=== PATIENT | female | born 1950 | race Caucasian/White ===

== ENCOUNTER 2019-06-18 11:29 | Day surgery (SDC) | payer OTHER ==
[~2019-06-18] VITALS: Ht 152.4 cm; Wt 122.6 kg
[~2019-06-18 11:29] MED LIST: ACET325; ALLO300 PO; AMLO5; ASPI81CH PO; ASPI81EC; ASPI81EC PO; ATOR20 PO; BLOOD PRESSURE MED; CEPH500 PO; Cinnamon500 MG; FISH1000; FURO40 PO; HYDACE5; HYDCHL25; INSULANI SC; INSULISPEN SC; K-Dur 20 meq T20 MEQ PO; LOSA25 PO; MAGOXI400 PO; METF500; METO100 PO; METO50 PO; Multiple Vitam1 EAC1; Novolog Fl100 UNIT/1 SC; OLME40 PO; OMEP20ER; OMEP20ER PO; PRAV20 PO; RANO500T PO; RXCODACET PO; Red Yeast Rice600 MG; SIMV80 PO; SPIR25 PO; TORSE20 PO
[2019-06-18] MEDS ORDERED: WARF5 (11:45)
[2019-06-18] MEDS ORDERED: ENOX120I (11:45)
--- NOTE | 2019-06-18 12:45 | NUR ---
06/18/19 1245 Denise Argueta PT AMBULATED TO RESTROOM
== END 2019-06-18 14:20 | disposition home or self-care (01) ==
LOC: ORSCSDS 11:29
PROVIDERS: Internal Medicine Gastroenterology
PROC: 0DBM8ZX Excision of Descending Colon, Via Natural or Artificial Opening Endoscopic, Diagnostic (ICD-10-PCS; principal; 2019-06-18 13:00)
PROC: 0DBK8ZX Excision of Ascending Colon, Via Natural or Artificial Opening Endoscopic, Diagnostic (ICD-10-PCS; principal; 2019-06-18 13:00)
PROC: 0DBP8ZX Excision of Rectum, Via Natural or Artificial Opening Endoscopic, Diagnostic (ICD-10-PCS; principal; 2019-06-18 13:00)
PROC: 0DBL8ZX Excision of Transverse Colon, Via Natural or Artificial Opening Endoscopic, Diagnostic (ICD-10-PCS; principal; 2019-06-18 13:00)
DX: Z12.11 Encounter for screening for malignant neoplasm of colon (principal); Z86.010 Personal history of colon polyps; D12.2 Benign neoplasm of ascending colon; D12.3 Benign neoplasm of transverse colon; D12.4 Benign neoplasm of descending colon; K62.1 Rectal polyp; K57.30 Diverticulosis of large intestine without perforation or abscess without bleeding; Z83.71 Family history of colonic polyps; E66.01 Morbid (severe) obesity due to excess calories; G47.33 Obstructive sleep apnea (adult) (pediatric); I10 Essential (primary) hypertension; I25.10 Atherosclerotic heart disease of native coronary artery without angina pectoris; J44.9 Chronic obstructive pulmonary disease, unspecified; Z87.891 Personal history of nicotine dependence; K21.9 Gastro-esophageal reflux disease without esophagitis; E11.9 Type 2 diabetes mellitus without complications; E78.5 Hyperlipidemia, unspecified; Z79.899 Other long term (current) drug therapy; Z79.4 Long term (current) use of insulin; Z79.01 Long term (current) use of anticoagulants
CPT/HCPCS: 82947; 88305; J2704; J7120

== ENCOUNTER → 2019-07-02 | Outpatient (CLI) | payer OTHER ==
[~2019-07-02] MED LIST changes: +ENOX120I; +WARF5
== END | disposition home or self-care (01) ==
LOC: LAB SHORT 15:52 → LAB EV 15:52
DX: S81.802A Unspecified open wound, left lower leg, initial encounter (principal)
CPT/HCPCS: 87070; 87075; 87077; 87186; 87205; 87206

== ENCOUNTER 2020-05-26 09:43 | Emergency (ER) | payer OTHER ==
[~2020-05-26] VITALS: Ht 152.4 cm; Wt 122.5 kg
[2020-05-26] MEDS ORDERED: Bumetanide2 MG PO (10:08)
[2020-05-26] MEDS ORDERED: DILT180 PO (10:10)
[2020-05-26 10:29] LABS: BASOPHILS ABSOLUTE AUTO 0.08 K/mm3 (0.00-0.23); BASOPHILS PERCENT AUTO 1 % (0-2); EOSINOPHILS ABSOLUTE AUTO 0.24 K/mm3 (0.00-0.68); EOSINOPHILS PERCENT AUTO 2 % (0-6); Hematocrit 45.9 % (33.0-51.0); Hemoglobin 15.4 g/dL (11.5-16.0); IMMATURE GRAN ABSOLUTE AUTO 0.08 K/mm3 (0.00-0.10); IMMATURE GRAN PERCENT AUTO 1 % (0-1); LYMPHOCYTES ABSOLUTE AUTO 1.59 K/mm3 (0.84-5.20); LYMPHOCYTES PERCENT AUTO 13 % (21-46); MONOCYTES ABSOLUTE AUTO 0.81 K/mm3 (0.16-1.47); MONOCYTES PERCENT AUTO 7 % (4-13); Mean Corpuscular HGB 30.1 pg (26.0-34.0); Mean Corpuscular HGB Conc 33.6 g/dL (31.5-36.5); Mean Corpuscular Volume 90 fL (80-100); Mean Platelet Volume 12.4 fL (9.1-12.4); NEUTROPHILS ABSOLUTE AUTO 9.21 K/mm3 (1.96-9.15); NEUTROPHILS PERCENT AUTO 77 % (41-73); Platelet Count 167 K/mm3 (150-400); RDW Coefficient Variation 15.1 % (11.7-14.2); RDW Standard Deviation 49.1 fL (35.1-46.3); Red Blood Cell Count 5.12 M/mm3 (3.80-5.20); White Blood Cell Count 12.01 K/mm3 (4.00-11.30)
[2020-05-26 10:40] LABS: Alanine Aminotransfer (ALT/SGP 22 U/L (12-78); Albumin, Blood 3.7 g/dL (3.4-5.0); Albumin/Globulin Ratio 0.9 (0.8-1.8); Alk Phos 108 U/L (50-136); Anion Gap 9 mmol/L (6-16); Aspartate Aminotrans (AST/SGOT 22 U/L (12-37); Bilirubin, Total 0.9 mg/dL (0.1-1.0); Blood Urea Nitrogen 35 mg/dL (8-24); Bun/Creatinine Ratio 21.2 (12.0-20.0); CO2, Blood 26 mmol/L (21-32); CPK Creatine Kinase 71 U/L (26-193); Calcium, Blood 8.9 mg/dL (8.5-10.1); Chloride, Blood 99 mmol/L (98-108); Creatine Kinase MB 1.3 ng/mL (0.0-3.6); Creatine Kinase MB Index 1.8 (0.0-4.0); Creatinine, Blood 1.65 mg/dL (0.40-1.00); Globulin, Blood 4.1 g/dL (2.2-4.0); Glomerular Filtration Rate 32 (60-); Glucose, Blood 343 mg/dL (70-99); Potassium, Blood 4.1 mmol/L (3.5-5.5); Sodium, Blood 134 mmol/L (136-145); Total Protein, Blood 7.8 g/dL (6.4-8.2); Troponin I <0.015 ng/mL (0.000-0.040)
== END 2020-05-26 12:59 | disposition home or self-care (01) ==
LOC: ER 09:43
PROVIDERS: Emergency Medicine
DX: I48.91 Unspecified atrial fibrillation (principal); E11.9 Type 2 diabetes mellitus without complications; I10 Essential (primary) hypertension; I25.810 Atherosclerosis of coronary artery bypass graft(s) without angina pectoris; K21.9 Gastro-esophageal reflux disease without esophagitis; Z79.899 Other long term (current) drug therapy; Z79.4 Long term (current) use of insulin; Z79.01 Long term (current) use of anticoagulants; Z95.1 Presence of aortocoronary bypass graft; Z87.891 Personal history of nicotine dependence
CPT/HCPCS: 36415; 71046; 80053; 82550; 82553; 83690; 84484; 85025; 93005; 93010; 96374; 99285-25

== ENCOUNTER 2021-11-25 14:58 | Inpatient (IN) | payer OTHER ==
[~2021-11-25] VITALS: Ht 154.9 cm; Wt 113.4 kg
[~2021-11-25 14:58] MED LIST changes: +Bumetanide2 MG PO; +DILTIAZEM PO; -METO100 PO; -WARF5; +WARF5 PO
[2021-11-25 16:03] LABS: BASOPHILS ABSOLUTE AUTO 0.05 K/mm3 (0.00-0.23); BASOPHILS PERCENT AUTO 1 % (0-2); EOSINOPHILS ABSOLUTE AUTO 0.15 K/mm3 (0.00-0.68); EOSINOPHILS PERCENT AUTO 2 % (0-6); Hematocrit 44.2 % (33.0-51.0); Hemoglobin 14.8 g/dL (11.5-16.0); IMMATURE GRAN ABSOLUTE AUTO 0.03 K/mm3 (0.00-0.10); IMMATURE GRAN PERCENT AUTO 0 % (0-1); LYMPHOCYTES ABSOLUTE AUTO 1.38 K/mm3 (0.84-5.20); LYMPHOCYTES PERCENT AUTO 15 % (21-46); MONOCYTES ABSOLUTE AUTO 0.57 K/mm3 (0.16-1.47); MONOCYTES PERCENT AUTO 6 % (4-13); Mean Corpuscular HGB 29.7 pg (26.0-34.0); Mean Corpuscular HGB Conc 33.5 g/dL (31.5-36.5); Mean Corpuscular Volume 89 fL (80-100); Mean Platelet Volume 11.5 fL (9.1-12.4); NEUTROPHILS ABSOLUTE AUTO 7.22 K/mm3 (1.96-9.15); NEUTROPHILS PERCENT AUTO 77 % (41-73); Platelet Count 183 K/mm3 (150-400); RDW Standard Deviation 51.5 fL (35.1-46.3); Red Blood Cell Count 4.98 M/mm3 (3.80-5.20)
[2021-11-25 16:21] LABS: Albumin, Blood 3.1 g/dL (3.4-5.0); Albumin/Globulin Ratio 0.8 (0.8-1.8); Bilirubin, Total 0.7 mg/dL (0.1-1.0); Bun/Creatinine Ratio 18.9 (12.0-20.0); Creatinine, Blood 1.64 mg/dL (0.40-1.00); Globulin, Blood 4.1 g/dL (2.2-4.0); Potassium, Blood 4.8 mmol/L (3.5-5.5); Total Protein, Blood 7.2 g/dL (6.4-8.2)
[2021-11-25 17:00] LABS: Source, Urine Clean Catch
[2021-11-25 17:23] LABS: Appearance, Urine Hazy (Clear); Bilirubin, Urine Neg (Neg); Blood, Urine 2+ (Neg); Color, Urine Yellow (P-Yellow); Glucose Qualitative, Urine 3+ (Neg); Ketones, Urine Neg (Neg); Leukocyte Esterase, Urine 3+ (Neg); Nitrite, Urine Neg (Neg); Protein, Urine 3+ (Neg); Specific Gravity, Urine 1.015 (1.003-1.022); Urobilinogen, Urine NORM (Normal)
[2021-11-25 18:18] LABS: Bacteria Many /hpf; Squamous Epithelial Cells Mod /hpf (Few)
[2021-11-25 21:18] LABS: Anti-Xa UFH, PHA Monitoring <0.10 IU/mL; International Normalized Ratio 1.64; Prothrombin Time Results 16.7 Sec (9.7-11.5)
--- NOTE | 2021-11-26 04:59 | NUR ---
SHIFT SUMMARY PT TRANSFERRED FROM ED FOR UTI AND REPORTED CHEST PAIN LASTING 8 HOURS. PT IS ALERT AND ORIENTED X4. SYSTOLIC BLOOD PRESSURE RANGING FROM 100'S - 120'S WITH AFIB. PT IS ON ROOM AIR WITH O2 SATURATION >95%. HEPARIN IS INFUSING. CARDIAC CONSULT FOR AM. TROPONINS SHOW A TREND UPWARDS. PT DENIES CHEST PAIN OR PRESSURE. PT IS A SBA AND USES BEDSIDE COMMODE. PT IS ANXIOUS TO GO HOME AND VS ARE STABLE. WILL CONTIUE TO MONITOR. BED IN LOWEST POSITION AND CALL LIGHT WITHIN REACH.
[2021-11-26 05:21] LABS: BASOPHILS ABSOLUTE AUTO 0.06 K/mm3 (0.00-0.23); BASOPHILS PERCENT AUTO 1 % (0-2); EOSINOPHILS ABSOLUTE AUTO 0.24 K/mm3 (0.00-0.68); EOSINOPHILS PERCENT AUTO 3 % (0-6); Hematocrit 41.4 % (33.0-51.0); Hemoglobin 13.8 g/dL (11.5-16.0); IMMATURE GRAN ABSOLUTE AUTO 0.03 K/mm3 (0.00-0.10); IMMATURE GRAN PERCENT AUTO 0 % (0-1); LYMPHOCYTES ABSOLUTE AUTO 2.78 K/mm3 (0.84-5.20); LYMPHOCYTES PERCENT AUTO 30 % (21-46); MONOCYTES ABSOLUTE AUTO 0.67 K/mm3 (0.16-1.47); MONOCYTES PERCENT AUTO 7 % (4-13); Mean Corpuscular HGB 29.9 pg (26.0-34.0); Mean Corpuscular HGB Conc 33.3 g/dL (31.5-36.5); Mean Corpuscular Volume 90 fL (80-100); Mean Platelet Volume 11.7 fL (9.1-12.4); NEUTROPHILS ABSOLUTE AUTO 5.59 K/mm3 (1.96-9.15); NEUTROPHILS PERCENT AUTO 60 % (41-73); Platelet Count 142 K/mm3 (150-400); RDW Coefficient Variation 15.9 % (11.7-14.2); RDW Standard Deviation 52.2 fL (35.1-46.3); Red Blood Cell Count 4.62 M/mm3 (3.80-5.20); White Blood Cell Count 9.37 K/mm3 (4.00-11.30)
[2021-11-26 05:51] LABS: Alanine Aminotransfer (ALT/SGP 29 U/L (12-78); Albumin, Blood 2.9 g/dL (3.4-5.0); Albumin/Globulin Ratio 0.9 (0.8-1.8); Alk Phos 76 U/L (50-136); Anion Gap 5 mmol/L (6-16); Aspartate Aminotrans (AST/SGOT 42 U/L (12-37); Bilirubin, Total 0.6 mg/dL (0.1-1.0); Blood Urea Nitrogen 25 mg/dL (8-24); Bun/Creatinine Ratio 17.4 (12.0-20.0); CHOL/HDL RATIO 3.8; CO2, Blood 28 mmol/L (21-32); Calcium, Blood 8.2 mg/dL (8.5-10.1); Chloride, Blood 107 mmol/L (98-108); Cholesterol 157 mg/dL (50-200); Creatinine, Blood 1.44 mg/dL (0.40-1.00); Globulin, Blood 3.4 g/dL (2.2-4.0); Glomerular Filtration Rate 36 (60-); Glucose, Blood 206 mg/dL (70-99); HDL Cholesterol 41 mg/dL (>39); LDL/HDL RATIO 1.8; Low Density Lipoprotein Chol 75 mg/dL (0-110); Sodium, Blood 140 mmol/L (136-145); Total Protein, Blood 6.3 g/dL (6.4-8.2); Triglycerides 206 mg/dL (30-160); Very Low Density Lipoprot Chol 41 mg/dL (6-32)
--- NOTE | 2021-11-26 10:20 | NUR ---
CARE ASSUMPTION THIS RN ASSUMED CARE FROM SANTOSH RN., AND STUDENT AT 0700. PATIENT IS ALERT AND ORIENTED X4. PERRLA. NEURO IS INTACT. PATIENT BECOMES ANXIOUS ABOUT PLAN OF CARE AND ASKS FREQUENT QUESTIONS. THIS PROVIDED THERAPEUTIC COMMUNICATION AND ACTIVE LISTENING AND EDUCATION TO THE PATIENT AND FAMILY MEMBERS. PATIENT REPORTS NO CHEST PAIN/PRESSURE, SHORTNESS OF BREATH, OR PAIN. TELE AFIB 70S. IRREGULAR PULSE THAT IS FAINT AT RADIAL AND PEDIS PULSES BILATERALLY. LUNG SOUNDS CLEAR. ABD NONTENDER, HYPOACTIVE BOWELS, AND SOFT. SKIN IS FRAIGLE WITH SCATTERED BRUSING THROUGHOUT. PATIENT IS STAND BY ASSIST. PATIENT HAD A SHOWER THIS AM. THE PLAN IS FOR THE PATIENT TO HAVE AN ANGIO LATER TODAY. FAMILY IS AT BEDSIDE AND CALL LIGHT WITHIN REACH. WILL CONTINUE TO MONITOR AND PROVIDE CARE.
--- NOTE | 2021-11-26 12:38 | NUR ---
UPDATE PATIENT LEFT FOR HER ANGIO AT APPROX 1210. FAMILY WENT WITH AND IS IN THE DIRECT RESPONSE CONSULTANT WAITING ROOM. PATIENT NEURO IS INTACT. VSS. TELE AFIB 90S. PATIENT HAS NO CHANGES SINCE LAST NOTE. WILL AWAIT FOR PATIENT TO ARRIVE POST ANGIO.
--- NOTE | 2021-11-26 16:37 | NUR ---
UPDATE-BACK FROM TRACK LAYING SUPERVISOR PATIENT ARRIVED BACK FROM TRACK LAYING SUPERVISOR AT 1400. PATIENT HAS A LEFT RADIAL SITE S/P ANGIO, SITE IS NONTENDER, NO BLEEDING REDDNESS OR HEMATOMA. TR BAND IN PLACE WITH 16CC, WILL REMOVE AIR AT 1645. PATIENT VITAL SIGNS REMAIN STABLE. PATIENT HAS URGNECY AND FREQUENCY FOR URINATION AND HAS BEEN CALLING FREQUENTLY SINCE RETURNING. WILL CONTINUE TO MONITOR AND PROVIDE CARE. BED ALARRM ON AND CALL LIGHT WITHIN REACH
--- NOTE | 2021-11-26 17:38 | NUR ---
SHIFT SUMMARY PATIENT NEURO REMAINS INTACT. NO ACUTE CHANGES. PATIENT TR BAND HAS BEGUN THE DELFATION PROCESS. WILL CONTINUE TO DEFLATE AND ASSESS SITE. PATIENT HAS FREQUENCY AND URGENCY FOR URINATION. NEEDS REMINDERS TO USE CALL LIGHT AND NOT USE THE LEFT ARM. PATIENT STATES SHE FEELS CONFUSED AFTER THE ANGIO. THIS RN PROVIDED THERPUETIC COMMUNICATION AND ACTIVE LISTENING AND SUPPORT TO THE PATIENT. LEFT RADIAL SITE HAS NO BLEEDING, HEMATOMA, OR REDDNESS. CALL LIGHT WITHIN REACH AND BED IN LOWEST POSITION WITH BED ALARM ON. PATIENT SITTING IN BED CURRENTLY EATING DINNER. WILL CONTINUE TO MONITOR AND PROVIDE CARE UNTIL HAND OFF WITH NEXT SHIFT.
--- NOTE | 2021-11-26 22:12 | NUR ---
TONIGHT PATIENT IS VERY CONFUSED. EXTREMELY MORE CONFUSED THAN PREVIOUS NIGHT. VERY RESTLESS, CANT GET COMFORTABLE. VERY DIFFERENT IN COMPARISON TO YESTERDAY. PT CONFUSED AND NOT SURE WHAT SHE NEEDS, BUT WANTS TO SLEEP, AND KEEPS GETTING OUT OF THE BED. WILL CALL MD FOR EITHER ANTIANXIETY MEDS OR A PAVEL RESTRAINT
[2021-11-27 04:15] LABS: BASOPHILS ABSOLUTE AUTO 0.03 K/mm3 (0.00-0.23); BASOPHILS PERCENT AUTO 0 % (0-2); EOSINOPHILS ABSOLUTE AUTO 0.16 K/mm3 (0.00-0.68); EOSINOPHILS PERCENT AUTO 2 % (0-6); Hematocrit 42.2 % (33.0-51.0); Hemoglobin 13.9 g/dL (11.5-16.0); IMMATURE GRAN ABSOLUTE AUTO 0.03 K/mm3 (0.00-0.10); IMMATURE GRAN PERCENT AUTO 0 % (0-1); LYMPHOCYTES ABSOLUTE AUTO 1.61 K/mm3 (0.84-5.20); LYMPHOCYTES PERCENT AUTO 18 % (21-46); MONOCYTES ABSOLUTE AUTO 0.62 K/mm3 (0.16-1.47); MONOCYTES PERCENT AUTO 7 % (4-13); Mean Corpuscular HGB 29.3 pg (26.0-34.0); Mean Corpuscular HGB Conc 32.9 g/dL (31.5-36.5); Mean Corpuscular Volume 89 fL (80-100); Mean Platelet Volume 11.8 fL (9.1-12.4); NEUTROPHILS PERCENT AUTO 72 % (41-73); Platelet Count 146 K/mm3 (150-400); RDW Coefficient Variation 15.8 % (11.7-14.2); RDW Standard Deviation 51.5 fL (35.1-46.3); Red Blood Cell Count 4.75 M/mm3 (3.80-5.20); White Blood Cell Count 8.85 K/mm3 (4.00-11.30)
[2021-11-27 04:40] LABS: Albumin, Blood 3.2 g/dL (3.4-5.0); Albumin/Globulin Ratio 0.9 (0.8-1.8); Bilirubin, Total 0.6 mg/dL (0.1-1.0); Bun/Creatinine Ratio 14.5 (12.0-20.0); Calcium, Blood 8.4 mg/dL (8.5-10.1); Creatinine, Blood 1.45 mg/dL (0.40-1.00); Globulin, Blood 3.7 g/dL (2.2-4.0); Total Protein, Blood 6.9 g/dL (6.4-8.2)
--- NOTE | 2021-11-27 05:40 | NUR ---
SHIFT SUMMARY PT RESTED SOME THROUGH NIGHT. SEEMED TO BE MUCH MORE CONFUSED AND RESTLESS TODAY. GETTING UP FREQUENTLY WITHOUT ASKING FOR HELP, PULLING OUT LINES AND UNSTEADY ON FEET. HAD TO PLACE PAVEL RESTRAINT ON PT. HEP GTT RUNNING. PLANNING TO DO ECHO IN AM. VOIDING VERY FREQUENTLY. NO BM. NO CHEST PAIN. VSS. CALL LIGHT WITHIN REACH, BED IN LOWEST POSITION. AMOS CONTINUE TO MONITOR.
--- NOTE | 2021-11-27 09:54 | NUR ---
CARE ASSUMPTION THIS RN ASSUMED CARE FROM SANTOSH RN AT 0700. PATIENT IS ALERT AND ORIENTED X4. PERRLA. PATIENT LUNG SOUNDS CLEAR. SKIN-LEFT RADIAL SITE IS NONTENDER, NOT BLEEDING, AND HAS SOME BRUISING AT THE SITE. NO CHEST PAIN OR PRESSURE, STRONG RADIAL AND WEEK PEDIS PULSES. NO SHORTNESS OF BREATH. VSS. NO PAIN. PATIENT ABD IS NONTENDER AND ACTIVE. PATIENT HAS USED THE BATHROOM AND IS A STAND BY ASSIST. PATIENT COUSIN IS AT BED SIDE. PATIENT EDUCATED ON LEFT RADIAL SITE CARE AND VERABLIZED UNDERSTANDING SO DID FAMILY AT BEDSIDE. PATIENT SET UP FOR ORAL CARE AND BRUSHED HER HAIR. AM CARE DONE. PATIENT WILL BE DISCHARGED TODAY AND THE DISCHARGE ORDER WAS PLACED. CALL LIGHT WITHIN REACH AND BED ALARM ON AND IN LOWEST POSITION. WILL CONTINUE TO MONITOR AND PROVIDE CARE UNTIL DISCHARGE EDUCATION IS READY FOR THIS RN TO GO OVER WITH THE PATIENT.
[2021-11-27] MEDS ORDERED: CLOP75 PO (10:11)
[2021-11-27] MEDS ORDERED: CEFP200 PO (10:11)
[2021-11-27] MEDS ORDERED: ATOR40TA PO (10:11)
[2021-11-27] MEDS ORDERED: ASPI81CH PO (10:11)
[2021-11-27] MEDS ORDERED: PROBIOTIC1 EA13 PO (10:12)
[2021-11-27] MEDS ORDERED: PHENAZOPYRIDINE95 MG PO (10:12)
--- NOTE | 2021-11-27 12:54 | NUR ---
DISCHARGE THIS RN PROVIDED DISCHARGE EDUCATION TO THE PATIENT AND FAMILY MEMBER. THIS RN WENT OVER FOLLOW UP APPOINTMENT WITH PRIMARY CARE PROVIDER, AND THAT THE [facility] WILL CALL THEM TO SCHEDULE A FOLLOW-UP APPOINTMENT. PATIENT AND FAMILY MEMBER VERBALIZED UNDERSTANDING. THIS RN WENT OVER NEW MEDICATIONS THAT THE PATIENT IS PRESCRIBED AND THE IMPROTANCE OF MEDICATION COMPLIANCE AND FINISHING THE ANTIBIOTICS EVEN IF FEELING BETTER. PATIENT AND FAMILY MEMBER VERBALIZED UNDERSTANDING AND WHY SHE WAS TAKING EACH NEW MEDICATION. THIS RN WENT OVER RADIAL SITE CARE WITH PATIENT AND FAMILY MEMBER AND THEY VERABLIZED UNDERSTANDING. ALL OF THE PATEINT BELONGINGS WERE GATHERED AND WITH THE PATIENT AND FAMILY MEMBER. PATIENT WAS IN NO DISTRESS WHEN LEAVING. MEDICATIONS CALLED IN TO [facility] AND FAXED AND RECEIVED CONFIRMATION. PATIENT IV ACCESS REMOVED WITH NO ISSUES. LEFT RADIAL SITE NO BLEEDING, TENDERNESS OR HEMATOMA. PATIENT LEFT AT 1256 VIA WHEELCHAIR PUSHED BY THE PATIENT PAID SEARCH ANALYST AND WENT OUT WITH FAMILY MEMBER TO CAR.
== END 2021-11-27 12:53 | disposition home or self-care (01) | DRG 281 ==
LOC: ER 14:58 → PCU 20:10
PROVIDERS: Hospitalist; Pharmacist; Physician Assistant; Student in an Organized Health Care Education/Training Program; ADMIT Internal Medicine
PROC: 4A023N7 Measurement of Cardiac Sampling and Pressure, Left Heart, Percutaneous Approach (ICD-10-PCS; principal; 2021-11-26)
PROC: B2111ZZ Fluoroscopy of Multiple Coronary Arteries using Low Osmolar Contrast (ICD-10-PCS; 2021-11-26)
PROC: B2181ZZ Fluoroscopy of Left Internal Mammary Bypass Graft using Low Osmolar Contrast (ICD-10-PCS; 2021-11-26)
PROC: B2131ZZ Fluoroscopy of Multiple Coronary Artery Bypass Grafts using Low Osmolar Contrast (ICD-10-PCS; 2021-11-26)
DX: I21.4 Non-ST elevation (NSTEMI) myocardial infarction (principal); I48.19 Other persistent atrial fibrillation; N39.0 Urinary tract infection, site not specified; Z66 Do not resuscitate; I25.10 Atherosclerotic heart disease of native coronary artery without angina pectoris; I48.0 Paroxysmal atrial fibrillation; E78.5 Hyperlipidemia, unspecified; E66.01 Morbid (severe) obesity due to excess calories; G47.33 Obstructive sleep apnea (adult) (pediatric); I12.9 Hypertensive chronic kidney disease with stage 1 through stage 4 chronic kidney disease, or unspecified chronic kidney disease; N18.30 Chronic kidney disease, stage 3 unspecified; E11.22 Type 2 diabetes mellitus with diabetic chronic kidney disease; M10.9 Gout, unspecified; I35.0 Nonrheumatic aortic (valve) stenosis; I27.20 Pulmonary hypertension, unspecified; B95.1 Streptococcus, group B, as the cause of diseases classified elsewhere; Z95.1 Presence of aortocoronary bypass graft; Z88.8 Allergy status to other drugs, medicaments and biological substances; Z79.4 Long term (current) use of insulin; Z79.02 Long term (current) use of antithrombotics/antiplatelets; Z79.899 Other long term (current) drug therapy
CPT/HCPCS: 36415; 71045; 76937; 80053; 80061; 81001; 82947; 83880; 84443; 84484; 85025; 85520; 85610; 85730; 86850; 86900; 86901; 87086; 87147; 93005; 93010; 93306; 93459; 93567; 94762; 96374; 97110; 97162; 99152; 99153; 99285-25; A9270; C1769; C1887; C1894; C9113; J0696; J1644; J1815; J2250; J3010; J7030; J7040; Q9967

== ENCOUNTER 2022-03-23 20:22 | Emergency (ER) | payer OTHER ==
[~2022-03-23] VITALS: Ht 154.9 cm; Wt 112.0 kg
[~2022-03-23 20:22] MED LIST changes: +ATOR40TA PO; +CEFP200 PO; +CLOP75 PO; +PHENAZOPYRIDINE95 MG PO; +PROBIOTIC1 EA13 PO
[2022-03-24] MEDS ORDERED: CEPH500 PO (00:12)
== END 2022-03-24 00:15 | disposition home or self-care (01) ==
LOC: ER 20:22
DX: M79.675 Pain in left toe(s) (principal); W22.8XXA Striking against or struck by other objects, initial encounter; E11.9 Type 2 diabetes mellitus without complications; K21.9 Gastro-esophageal reflux disease without esophagitis; I48.91 Unspecified atrial fibrillation; Z88.5 Allergy status to narcotic agent; Z79.899 Other long term (current) drug therapy; Z79.4 Long term (current) use of insulin; Z79.01 Long term (current) use of anticoagulants; Z79.82 Long term (current) use of aspirin; Z95.1 Presence of aortocoronary bypass graft; Z87.891 Personal history of nicotine dependence
CPT/HCPCS: 73620; 99283-25; A9270

== ENCOUNTER 2022-04-14 12:02 | Inpatient (IN) | payer OTHER ==
[~2022-04-14] VITALS: Ht 165.1 cm; Wt 97.0 kg
[2022-04-14 13:39] LABS: BASOPHILS ABSOLUTE AUTO 0.03 K/mm3 (0.00-0.23); BASOPHILS PERCENT AUTO 0 % (0-2); EOSINOPHILS ABSOLUTE AUTO 0.01 K/mm3 (0.00-0.68); EOSINOPHILS PERCENT AUTO 0 % (0-6); Hematocrit 26.6 % (33.0-51.0); Hemoglobin 8.8 g/dL (11.5-16.0); IMMATURE GRAN ABSOLUTE AUTO 0.14 K/mm3 (0.00-0.10); IMMATURE GRAN PERCENT AUTO 1 % (0-1); LYMPHOCYTES ABSOLUTE AUTO 0.98 K/mm3 (0.84-5.20); LYMPHOCYTES PERCENT AUTO 6 % (21-46); MONOCYTES ABSOLUTE AUTO 0.92 K/mm3 (0.16-1.47); MONOCYTES PERCENT AUTO 6 % (4-13); Mean Corpuscular HGB 26.6 pg (26.0-34.0); Mean Corpuscular HGB Conc 33.1 g/dL (31.5-36.5); Mean Corpuscular Volume 80 fL (80-100); Mean Platelet Volume 11.3 fL (9.1-12.4); NEUTROPHILS ABSOLUTE AUTO 13.47 K/mm3 (1.96-9.15); NEUTROPHILS PERCENT AUTO 87 % (41-73); NRBC ABSOLUTE 0.03 K/mm3 (0.00-0.02); NRBC Auto 0.2 /100 WBC (0.0-0.2); Platelet Count 314 K/mm3 (150-400); RDW Coefficient Variation 21.8 % (11.7-14.2); RDW Standard Deviation 62.4 fL (35.1-46.3); Red Blood Cell Count 3.31 M/mm3 (3.80-5.20); White Blood Cell Count 15.55 K/mm3 (4.00-11.30)
[2022-04-14 14:06] LABS: Albumin, Blood 2.9 g/dL (3.4-5.0); Albumin/Globulin Ratio 0.8 (0.8-1.8); Bilirubin, Total 0.9 mg/dL (0.1-1.0); Bun/Creatinine Ratio 49.3 (12.0-20.0); Calcium, Blood 7.3 mg/dL (8.5-10.1); Creatinine, Blood 3.73 mg/dL (0.40-1.00); Globulin, Blood 3.7 g/dL (2.2-4.0); Total Protein, Blood 6.6 g/dL (6.4-8.2)
[2022-04-14 14:33] LABS: Prothrombin Time Results >90.0 Sec (9.7-11.5)
[2022-04-14 14:34] LABS: International Normalized Ratio >10.00
[2022-04-14 15:48] LABS: Influenza A, PCR NEGATIVE (NEGATIVE); Influenza B, PCR NEGATIVE (NEGATIVE); Resp Syncytial Virus, PCR NEGATIVE (NEGATIVE)
[2022-04-14 16:19] LABS: Source, Urine Clean Catch
[2022-04-14 16:30] LABS: Appearance, Urine Hazy (Clear); Bilirubin, Urine Neg (Neg); Blood, Urine Neg (Neg); Color, Urine Yellow (P-Yellow); Glucose Qualitative, Urine Neg (Neg); Ketones, Urine Neg (Neg); Leukocyte Esterase, Urine 1+ (Neg); Nitrite, Urine Neg (Neg); Protein, Urine Neg (Neg); Specific Gravity, Urine 1.015 (1.003-1.022); Urobilinogen, Urine NORM (Normal)
[2022-04-14 16:57] LABS: Bacteria Mod /hpf; Red Blood Cells, Urine 0-2 /hpf (0-2); Squamous Epithelial Cells Few /hpf (Few)
[2022-04-14 17:31] LABS: SARS-Cov-2 (COVID-19) PCR, MMC POSITIVE (NEGATIVE)
[2022-04-14 19:26] LABS: Prothrombin Time Results 69.4 Sec (9.7-11.5)
[2022-04-14 19:28] LABS: International Normalized Ratio 7.54
--- NOTE | 2022-04-14 21:05 | NUR ---
PATIENT ARRIVED TO UNIT AT THIS TIME. HYPOTENSIVE, COMPLAINING OF GENERAL BODY PAINS AND MALAISE. ATTACHED TO MONITORS
[2022-04-15 04:04] LABS: BASOPHILS ABSOLUTE AUTO 0.03 K/mm3 (0.00-0.23); BASOPHILS PERCENT AUTO 0 % (0-2); EOSINOPHILS PERCENT AUTO 0 % (0-6); Hematocrit 18.9 % (33.0-51.0); Hemoglobin 6.1 g/dL (11.5-16.0); IMMATURE GRAN ABSOLUTE AUTO 0.24 K/mm3 (0.00-0.10); IMMATURE GRAN PERCENT AUTO 1 % (0-1); LYMPHOCYTES ABSOLUTE AUTO 2.29 K/mm3 (0.84-5.20); LYMPHOCYTES PERCENT AUTO 11 % (21-46); MONOCYTES ABSOLUTE AUTO 1.31 K/mm3 (0.16-1.47); MONOCYTES PERCENT AUTO 6 % (4-13); Mean Corpuscular HGB 26.8 pg (26.0-34.0); Mean Corpuscular HGB Conc 32.3 g/dL (31.5-36.5); Mean Corpuscular Volume 83 fL (80-100); Mean Platelet Volume 11.6 fL (9.1-12.4); NEUTROPHILS ABSOLUTE AUTO 17.18 K/mm3 (1.96-9.15); NEUTROPHILS PERCENT AUTO 82 % (41-73); NRBC ABSOLUTE 0.09 K/mm3 (0.00-0.02); NRBC Auto 0.4 /100 WBC (0.0-0.2); Platelet Count 325 K/mm3 (150-400); RDW Coefficient Variation 21.9 % (11.7-14.2); RDW Standard Deviation 62.5 fL (35.1-46.3); Red Blood Cell Count 2.28 M/mm3 (3.80-5.20); White Blood Cell Count 21.05 K/mm3 (4.00-11.30)
[2022-04-15 04:26] LABS: Albumin, Blood 2.3 g/dL (3.4-5.0); Albumin/Globulin Ratio 0.8 (0.8-1.8); Bilirubin, Total 0.9 mg/dL (0.1-1.0); Bun/Creatinine Ratio 44.6 (12.0-20.0); Calcium, Blood 6.2 mg/dL (8.5-10.1); Creatinine, Blood 3.81 mg/dL (0.40-1.00); Globulin, Blood 2.9 g/dL (2.2-4.0); Total Protein, Blood 5.2 g/dL (6.4-8.2)
[2022-04-15 04:47] LABS: Prothrombin Time Results 45.6 Sec (9.7-11.5)
[2022-04-15 04:49] LABS: International Normalized Ratio 4.81
--- NOTE | 2022-04-15 06:30 | NUR ---
SHIFT SUMMARY NEURO: PATIENT ALERT AND ORIENTED BUT OFTEN FORGETFUL. ALEX. VERY WEAK AND HAS TROUBLE MOVING IN BED AND ASSISTING WITH TURNS. COMPLAINS OF GENERAL BODY PAINS. CARDIAC: BP LABILE. AFEBRILE, AFIB ON MONITOR IN 70'S. ON PRESSERS. HYPOTENSIVE OVERNIGHT. RECIEVED 1LNS BOLUS WITH LITTLE IMPROVEMENT. PULSES PALPABLE. TOES DUSKY RESP: PATIENT ON RA, LUNGS CLEAR AND DIM GI: COMPLAINTS OF ABDOMINAL PAIN AND CRAMPING. ONE LARGE BLOODY BM OVERNIGHT. SPECIMEN SENT TO LAB FOR TESTING. : PATIENT COMPLAINING OF BURNING URINATION, FREQUENCY BUT UNABLE TO VOID. INCONTINENCE ON ARRIVAL TO UNIT. ATTEMPTED BLADDER SCAN BUT COULD NOT GET ACCURATE RESULTS. SKIN: VERY PALE, MULTIPLE WOUNDS ON ADMIT, SEE CHART FOR PICTURES. MOBILITY: DIFFICULTY MOVING AROUND IN BED. OTHER: LEVO @ 18, VASO @ 0.04, MAINTAINANCE FLUIDS RUNNING, TKO CENTRAL LINE PLACED BY MD DURING SHIFT ELECTROLYTES LOW, REPLACED WITH IV MEDS- SEE EMAR HGB DROPPED OVERNIGHT, PATIENT RECEIVING ONE UNIT PRBC. PLAN FOR CT ABDOMEN TODAY
[2022-04-15 08:16] LABS: Source, Urine Foley catheter
[2022-04-15 08:18] LABS: Appearance, Urine Clear (Clear); Bilirubin, Urine Neg (Neg); Blood, Urine 1+ (Neg); Color, Urine Yellow (P-Yellow); Glucose Qualitative, Urine Neg (Neg); Ketones, Urine Neg (Neg); Leukocyte Esterase, Urine Neg (Neg); Nitrite, Urine Neg (Neg); Protein, Urine Neg (Neg); Specific Gravity, Urine 1.015 (1.003-1.022); Urobilinogen, Urine NORM (Normal)
[2022-04-15 08:30] LABS: Bacteria Rare /hpf; Red Blood Cells, Urine 0-2 /hpf (0-2); Squamous Epithelial Cells Rare /hpf (Few); White Blood Cells, Urine 0-2 /hpf (0-5)
--- NOTE | 2022-04-15 10:42 | NUR ---
ASSUMED CARE REPORT RECEIVED FROM MIRELLA CORRAL. PT AWAKE, LYING IN BED, ORIENTED TO PERSON AND PLACE. 1 UNIT OF BLOOD, LEVOPHED, AND VASOPRESSIN INFUSING. PT STATES SHE WAS INCONTINENT OF URINE, BUT STILL FEELS LIKE SHE NEEDS TO VOID. SPOKE WITH DR. MICHAEL AND ORDER FOR SOLANO RECEIVED. INSERTED WITH SOME DIFFICULTY BUT PT TOLERATED WELL AND HAD IMMEDIATE RETURN OF 600ML URINE EVEN THOUGH PT HAD VOIDED RIGHT BEFORE. PT ALSO HAD A BM THAT WAS MAROON AND GELATINOUS. DR. MCIHAEL INFORMED OF THIS AND THE THAT HOSPITAL DOESN'T HAVE GI COVERAGE FOR SEVERAL DAYS. TOOK PT FOR CT ABDOMEN AND PT TOLERATED THAT WELL. PRESSORS HAVE BEEN ABLE TO BE TITRATED DOWN SIGNIFCANTLY, SEE FLOWSHEET. PT'S COUSIN AT THE BEDSIDE AND WAS UPDATED BY THIS NURSE AND DR. MICHAEL.
--- NOTE | 2022-04-15 12:30 | NUR ---
REASSESSMENT PT REMAINS ALERT AND ORIENTED. PRESSORS HAVE BEEN TITRATED DOWN WITH LEVOPHED AT 4MCG/MIN AND VASOPRESSIN OFF. 2ND UNIT OF PRBC INFUSING AND LABS TO BE CHECKED AFTER BLOOD IS DONE PER DR. MICHAEL. STILL ON RA, LUNGS CLEAR. SIPPING ON WATER. SOLANO DRAINING CL YELLOW URINE. PT'S BIGGEST COMPLAINT IS OFHER SKIN HURTING IN THE FOLDS WHERE THERE ARE EXCORIATIONS. FOLDS CLEANED AND POWDER REAPPLIED. PT'S SHIELA UPDATED BY THIS NURSE VIA TC. DR. JULIO NOTIFIED OF CONSULT.
[2022-04-15 16:08] LABS: BASOPHILS ABSOLUTE AUTO 0.01 K/mm3 (0.00-0.23); BASOPHILS PERCENT AUTO 0 % (0-2); EOSINOPHILS ABSOLUTE AUTO 0.01 K/mm3 (0.00-0.68); EOSINOPHILS PERCENT AUTO 0 % (0-6); Hematocrit 24.5 % (33.0-51.0); Hemoglobin 8.1 g/dL (11.5-16.0); IMMATURE GRAN PERCENT AUTO 1 % (0-1); LYMPHOCYTES ABSOLUTE AUTO 1.11 K/mm3 (0.84-5.20); LYMPHOCYTES PERCENT AUTO 9 % (21-46); MONOCYTES ABSOLUTE AUTO 0.59 K/mm3 (0.16-1.47); MONOCYTES PERCENT AUTO 5 % (4-13); Mean Corpuscular HGB 27.3 pg (26.0-34.0); Mean Corpuscular HGB Conc 33.1 g/dL (31.5-36.5); Mean Corpuscular Volume 83 fL (80-100); Mean Platelet Volume 10.8 fL (9.1-12.4); NEUTROPHILS ABSOLUTE AUTO 10.53 K/mm3 (1.96-9.15); NEUTROPHILS PERCENT AUTO 85 % (41-73); NRBC ABSOLUTE 0.02 K/mm3 (0.00-0.02); NRBC Auto 0.2 /100 WBC (0.0-0.2); Platelet Count 171 K/mm3 (150-400); RDW Standard Deviation 52.1 fL (35.1-46.3); Red Blood Cell Count 2.97 M/mm3 (3.80-5.20); White Blood Cell Count 12.35 K/mm3 (4.00-11.30)
[2022-04-15 16:18] LABS: International Normalized Ratio 1.67
[2022-04-15 16:38] LABS: Albumin, Blood 2.3 g/dL (3.4-5.0); Bilirubin, Total 0.7 mg/dL (0.1-1.0); Bun/Creatinine Ratio 50.2 (12.0-20.0); Calcium, Blood 6.6 mg/dL (8.5-10.1); Creatinine, Blood 3.23 mg/dL (0.40-1.00); Globulin, Blood 2.4 g/dL (2.2-4.0); Potassium, Blood 2.9 mmol/L (3.5-5.5); Total Protein, Blood 4.7 g/dL (6.4-8.2)
--- NOTE | 2022-04-15 17:50 | NUR ---
SHIFT SUMMARY PT HAS RECEIVED 2 UNITS OF PRBC TODAY AND HER PRESSORS HAVE BEEN TITRATED DOWN SIGNIFICANTLY. ALL PRESSORS WERE ABLE TO BE OFF WHILE SHE RECEIVED HER 2ND UNIT OF PRBC, BUT SHE REQUIRED THE LEVOPHED TURNED BACK ON AFTER THE BLOOD FINISHED AND IS CURRENTLY BACK DOWN TO 2MCG/MIN. HER LUNGS REMAIN CLEAR AND SHE IS ON RA WITH SPO2 95%. CONTINUES IN AFIB WITH RATE IN THE 80S. PT HAS BEEN SIPPING ON CLEAR LIQUIDS TODAY AND TOLERATING. SHE HAD 1 BM. SACRAL DRESSING CHANGED WITH THAT BM AND DRESSING ON HER TOE CHANGED TWICE TODAY AFTER THE DRESSING CAME OFF. PT'S SKIN FOLDS HAVE BEEN CLEANED AND POWDERED THROUGHOUT THE DAY AT PT'S REQUESTS. THEY ARE VERY TENDER FOR PT WITH ANY MOVEMENT. REPOSITIONED FREQUENTLY THROUGHOUT THE DAY TO TRY AND HELP PT BE COMFORTABLE POSSIBLE. 1825ML OF CL YELLOW URINE FROM SOLANO TODAY. PT'S COUSIN, DE, SPENT SEVERAL HOURS AT THE BEDSIDE TODAY AND PT'S SHIELA WAS UPDATED VIA PHONE.
--- NOTE | 2022-04-15 19:00 | NUR ---
ASSUMED CARE OF PATIENT AT THIS TIME. PATIENT RESTING IN BED IN ENHANCED DROPLET ISOLATION. ALLERGIES REVIEWED. LINES AND DRIPS VERIFIED AT BEDSIDE. PATIENT COMPLAINS OF BEING UNCOMFORTABLE. PLAN OF CARE REVIEWED WITH PATIENT
[2022-04-15 22:10] LABS: Hematocrit 24.5 % (33.0-51.0); Hemoglobin 8.3 g/dL (11.5-16.0)
[2022-04-15 22:27] LABS: Vancomycin, Random 16.3 ug/mL
[2022-04-16 00:24] LABS: Adenovirus F 40/41 Not Detected (NOT DETECT); Astrovirus Not Detected (NOT DETECT); Campylobacter Sp Not Detected (NOT DETECT); Cryptosporidium Not Detected (NOT DETECT); Cyclospora Cayetanensis Not Detected (NOT DETECT); E. Coli O157 Not Detected (NOT DETECT); Entamoeba Histolytica Not Detected (NOT DETECT); Enteroaggregative E. coli-EAEC Not Detected (NOT DETECT); Enteropathogenic E. coli-EPEC Not Detected (NOT DETECT); Enterotoxigenic E. coli-ETEC Not Detected (NOT DETECT); Giardia Lamblia Not Detected (NOT DETECT); Norovirus GI/GII Not Detected (NOT DETECT); Plesiomonas Shigelloides Not Detected (NOT DETECT); Rotavirus A Not Detected (NOT DETECT); Salmonella Sp Not Detected (NOT DETECT); Sapovirus Not Detected (NOT DETECT); Shiga Toxin-prod E. coli-STEC Not Detected (NOT DETECT); Shigella/Enteroin E. coli-EIEC Not Detected (NOT DETECT); Vibrio Cholerae Not Detected (NOT DETECT); Vibrio Sp Not Detected (NOT DETECT); Yersinia Enterocolitica Not Detected (NOT DETECT)
[2022-04-16 04:34] LABS: BASOPHILS ABSOLUTE AUTO 0.02 K/mm3 (0.00-0.23); BASOPHILS PERCENT AUTO 0 % (0-2); EOSINOPHILS PERCENT AUTO 1 % (0-6); Hematocrit 24.2 % (33.0-51.0); Hemoglobin 8.1 g/dL (11.5-16.0); IMMATURE GRAN ABSOLUTE AUTO 0.18 K/mm3 (0.00-0.10); IMMATURE GRAN PERCENT AUTO 1 % (0-1); LYMPHOCYTES ABSOLUTE AUTO 1.26 K/mm3 (0.84-5.20); LYMPHOCYTES PERCENT AUTO 10 % (21-46); MONOCYTES ABSOLUTE AUTO 0.72 K/mm3 (0.16-1.47); MONOCYTES PERCENT AUTO 6 % (4-13); Mean Corpuscular HGB 27.8 pg (26.0-34.0); Mean Corpuscular HGB Conc 33.5 g/dL (31.5-36.5); Mean Corpuscular Volume 83 fL (80-100); Mean Platelet Volume 10.5 fL (9.1-12.4); NEUTROPHILS ABSOLUTE AUTO 10.93 K/mm3 (1.96-9.15); NEUTROPHILS PERCENT AUTO 83 % (41-73); NRBC ABSOLUTE 0.03 K/mm3 (0.00-0.02); NRBC Auto 0.2 /100 WBC (0.0-0.2); Platelet Count 182 K/mm3 (150-400); RDW Coefficient Variation 18.8 % (11.7-14.2); Red Blood Cell Count 2.91 M/mm3 (3.80-5.20); White Blood Cell Count 13.21 K/mm3 (4.00-11.30)
[2022-04-16 04:52] LABS: Albumin, Blood 2.4 g/dL (3.4-5.0); Albumin/Globulin Ratio 0.9 (0.8-1.8); Bilirubin, Total 0.7 mg/dL (0.1-1.0); Bun/Creatinine Ratio 52.9 (12.0-20.0); Calcium, Blood 6.7 mg/dL (8.5-10.1); Creatinine, Blood 2.72 mg/dL (0.40-1.00); Globulin, Blood 2.7 g/dL (2.2-4.0); International Normalized Ratio 1.41; Magnesium, Blood 1.5 mg/dL (1.6-2.4); Phosphorus, Blood 2.7 mg/dL (2.5-4.9); Potassium, Blood 3.1 mmol/L (3.5-5.5); Prothrombin Time Results 14.5 Sec (9.7-11.5); Total Protein, Blood 5.1 g/dL (6.4-8.2)
--- NOTE | 2022-04-16 05:57 | NUR ---
SHIFT SUMMARY NEURO: PATIENT STATES SHE IS FEELING BETTER. FREQUENT REQUESTS REQUIRING MORE ATTENTION. COMPLAINS ABOUT EVERYTHING. TROUBLE SLEEPING AND COMPLAINTS OF CHRONIC PAIN THROUGHOUT BODY. WHEN AWAKE, IS ALERT AND ORIENTED. GROGGY WHEN FIRST AWAKENED. CARDIAC: BP LABILE. PATIENT MOVING ARM AROUND LEVOPHED OFF AT 0530. PATIENT TOLERATING WELL. RESP: RA, CLEAR, DIM, TACHYPNEA WITH EXERTION. GI: NO PAIN IN ABDOMEN. NO BM THIS SHIFT. ABDOMEN MILDLY DISTENDED. BS ACTIVE :SOLANO IN PLACE DRAINING TO BAG. CLEAR YELLOW URINE. 1900 UOP OVERNIGHT. PATIENT FREQUENTLY COMPLAINING OF THE FEELING TO URINATE. SOLANO FLUSHED WITH NO RESISTANCE. SKIN: SCATTERED BRUISING FROM FALLS AT HOME. NO CHANGE TO WOUNDS PRESENT ON ADMISSION. SEE CHART FOR PHOTOS. TOES DUSKY ON RIGHT FOOT WARM PINK TOES ON LEFT FOOT NEAR WOUND. OTHER:
--- NOTE | 2022-04-16 11:36 | NUR ---
REASSESSMENT PT HAS BEEN ALERT AND ORIENTED THIS MORNING, RESTING IN BED AND WATCHING TV. SHE HAD 1 BM THAT WAS STILL A DARK MAROON COLOR. PRESSORS REMAIN OFF. CONTINUES ON RA, CLEAR LUNGS. SOLANO DRAINING CL YELLOW URINE, OVER 1.5L ALREADY TODAY. DRINKING CL LIQUIDS AND IS TOLERATING WELL. SCDS ON PT FOR DVT PROPHYLAXIS AND TO HELP WITH SOME OF THE DISCOMFORT IN PT'S LEGS SHE SAYS AT HOME RUBBING THEM NORMALLY HELPS. PT'S COUSIN DE AT THE BEDSIDE AND HAS BEEN UPDATED.
[2022-04-16 12:29] LABS: Hematocrit 23.2 % (33.0-51.0); Hemoglobin 7.6 g/dL (11.5-16.0)
[2022-04-16 12:43] LABS: Bun/Creatinine Ratio 53.1 (12.0-20.0); Calcium, Blood 6.4 mg/dL (8.5-10.1); Creatinine, Blood 2.26 mg/dL (0.40-1.00); Magnesium, Blood 2.2 mg/dL (1.6-2.4); Potassium, Blood 3.7 mmol/L (3.5-5.5)
--- NOTE | 2022-04-16 15:07 | NUR ---
PT COMPLAINING OF SOME NAUSEA. GAVE PT EMESIS BAG AND SPOKE TO DR JULIO. ORDER RECEIVED FOR CHARMAINE. PT CONTINUOUSLY EXPRESSES CONCERN ABOUT HAVING LOOSE STOOLS IN THE BED. PT WAS VERY WEAK WHEN SHE GOT UP TO THE CHAIR AND NOT STRONG ENOUGH TO GET UP TO THE COMMODE REPEATEDLY. REASSURANCE PROVIDED THROUGHOUT THE DAY THAT ITS OK TO HAVE A BM AND THE STAFF HERE HAS NO PROBLEM CLEANING IT UP. PT CONTINUES TO BE DISTRESSED ABOUT THIS SAYING THAT SHE'S TRYING TO HOLD THE STOOL IN AND HER STOMACH HURTS. CONTINUALLY TELLING PT THAT THIS IS PART OF THE DISEASE PROCESS, THAT IT IS OK TO HAVE A BM AND THAT SHE WILL FEEL BETTER IF SHE LETS HERSELF. WILL CONTINUE TO PROVIDE REASSURANCE AND EDUCATION.
--- NOTE | 2022-04-16 16:53 | NUR ---
SHIFT SUMMARY PT'S HAS BEEN ABLE TO STAY OFF OF THE PRESSORS THIS SHIFT. SHE IS ALERT AND ORIENTED, BUT STILL VERY ANXIOUS ABOUT THE DISCOMFORT IN HER STOMACH AND FEELING LIKE SHE NEEDS TO PASS GAS OR HAVE A BM OFTEN. ONGOING REASSURANCE PROVIDED BY NURSING STAFF. REMAISN IN AFIB BUT RATE HAS BEEN HIGHER THIS AFTERNOON IN THE 110S. PT NORMALLY TAKES DILTIAZEM AND METOPROLOL AT HOME. DISCUSSED WITH DR JULIO AND HE WOUDL LIKE TO MONITOR FOR NOW LONG HR ISN'T MAINTAINING ABOVE 130. REPEAT H/H ORDERED FOR [address] JULIO. SOLANO DRAINING CL YELLOW URINE. NAUSEA IMPROVED AFTER ZOFRAN. CONTINUING TO MONITOR.
[2022-04-16 18:07] LABS: Hematocrit 23.5 % (33.0-51.0); Hemoglobin 7.7 g/dL (11.5-16.0)
--- NOTE | 2022-04-16 19:00 | NUR ---
ASSUMED CARE OF PATIENT AT THIS TIME PATIENT ASLEEP IN BED. UPDATES RECIEVED FROM DAY SHIFT RN. ALLERGIES REVIEWED. PATIENT HAS NO GTTS RUNNING AT THIS TIME.
--- NOTE | 2022-04-16 23:18 | NUR ---
PATIENT FREQUENTLY CALLING [place] LINE ATTENDANT LIGHT. WHEN ASKED WHAT SHE NEEDS, PATIENT STATES "I DON'T KNOW. I'M JUST BORED. CAN YOU COME TALK TO ME?" THIS RN INFORMED PATIENT ON REDUCING EXPOSURE TO COVID SO WE ARE CLUSTERING CARE. PATIENT STARTED YELLING "I NEED HELP". THIS RN ASSISTED PATIENT TO SITTING POSITION. PATIENT STATED SHE WAS HAVING AN ANXIETY ATTACK. NOTIFIED, ORDERS RECIEVED FOR MELATONIN AND XANAX. THIS RN STAYED WITH PATIENT AT BEDSIDE UNTIL MEDICINE BECAME EFFECTIVE.
[2022-04-17 04:44] LABS: BASOPHILS ABSOLUTE AUTO 0.01 K/mm3 (0.00-0.23); BASOPHILS PERCENT AUTO 0 % (0-2); EOSINOPHILS ABSOLUTE AUTO 0.11 K/mm3 (0.00-0.68); EOSINOPHILS PERCENT AUTO 1 % (0-6); Hematocrit 23.7 % (33.0-51.0); Hemoglobin 7.7 g/dL (11.5-16.0); IMMATURE GRAN ABSOLUTE AUTO 0.15 K/mm3 (0.00-0.10); IMMATURE GRAN PERCENT AUTO 1 % (0-1); LYMPHOCYTES ABSOLUTE AUTO 1.01 K/mm3 (0.84-5.20); LYMPHOCYTES PERCENT AUTO 9 % (21-46); MONOCYTES ABSOLUTE AUTO 0.72 K/mm3 (0.16-1.47); MONOCYTES PERCENT AUTO 7 % (4-13); Mean Corpuscular HGB 27.7 pg (26.0-34.0); Mean Corpuscular HGB Conc 32.5 g/dL (31.5-36.5); Mean Corpuscular Volume 85 fL (80-100); Mean Platelet Volume 10.5 fL (9.1-12.4); NEUTROPHILS ABSOLUTE AUTO 8.88 K/mm3 (1.96-9.15); NEUTROPHILS PERCENT AUTO 82 % (41-73); NRBC ABSOLUTE 0.03 K/mm3 (0.00-0.02); NRBC Auto 0.3 /100 WBC (0.0-0.2); Platelet Count 162 K/mm3 (150-400); RDW Coefficient Variation 19.4 % (11.7-14.2); RDW Standard Deviation 55.2 fL (35.1-46.3); Red Blood Cell Count 2.78 M/mm3 (3.80-5.20); White Blood Cell Count 10.88 K/mm3 (4.00-11.30)
[2022-04-17 05:05] LABS: Albumin, Blood 2.5 g/dL (3.4-5.0); Albumin/Globulin Ratio 0.9 (0.8-1.8); Bilirubin, Total 0.7 mg/dL (0.1-1.0); Bun/Creatinine Ratio 52.2 (12.0-20.0); Calcium, Blood 7.1 mg/dL (8.5-10.1); Creatinine, Blood 1.78 mg/dL (0.40-1.00); Globulin, Blood 2.7 g/dL (2.2-4.0); Potassium, Blood 3.1 mmol/L (3.5-5.5); Total Protein, Blood 5.2 g/dL (6.4-8.2)
--- NOTE | 2022-04-17 06:10 | NUR ---
SHIFT SUMMARY NEURO: PATIENT COMPLAINING OF BEING UNCOMFORTABLE. FIXATING ON THINGS AND REPEATEDLY ASKING TO GET OUT OF BED. GETTING ANTSY AND REMOVING PULSE OX AND BP CUFF. HAD A PANIC ATTACK AND WAS HYPERVENTILATING AND SHAKING. CALLED MD AND ORDERS RECIEVED FOR XANAX. SEE PREVIOUS NURSING NOTE FOR MORE INFORMATION. AFTER MEDICINE, PATIENT SLEPT WELL AND WAS MORE AGREEABLE. CARDIAC: BP STABLE. PATIENT IN AFIB. HR 100'S WHEN RESTING. TMAX 99.2. RESP: CLEAR DIM ON RA. GI: ONE SMALL LIQUID BLACK BM OVERNIGHT. : SOLANO IN PLACE DRAINING TO GRAVITY. UOP 1800 OVERNIGHT SKIN: IMPROVING EXCORIATION ON GROIN AND PANUS. SACRAL MEPILEX CHANGED. DRESSING IN PLACE ON LEFT GREAT TOE OTHER: PATIENT WANTS TO WORK WITH PT/OT TODAY.
--- NOTE | 2022-04-17 07:00 | NUR ---
ASSUME CARE: I have assumed care of this patient.
[2022-04-17 16:37] LABS: Hemoglobin 7.2 g/dL (11.5-16.0)
--- NOTE | 2022-04-17 18:38 | NUR ---
PROVIDER UPDATE: Discussed pt's sustained elevated HR above 120bpm with Dr Caba. Verbal order for 12.5 metoprolol daily.
--- NOTE | 2022-04-17 18:42 | NUR ---
SHIFT SUMMARY: pt changed to PCU status today. NEURO: pt pleasantly alert and oriented to self, place, and situation. She worked with PT/OT to transfer to bedside commode. Pt states she lives at home and is normally independant. CARDIAC: afib. Rate controlled below 120 for much of day. HR sustained in 130s for the past hour; lopressor ordered. BP stable. Right IJ discontinued. RESPIRATORY: CTA on RA GI/: cobian discontinued this afternoon per pt request. No BM. Tolerating clear liquid diet. PSYCH/SOCIAL: pt very apologetic unnecessarily. Cousin at bedside and supportive throughout the day.
--- NOTE | 2022-04-17 19:00 | NUR ---
ASSUMED CARE OF PATIENT AT THIS TIME. PATIENT RESTING IN BED. PREPARING TO TRANSFER TO PCU. PATIENT IS COMPLAINING OF ABDOMINAL CRAMPING BUT NO OTHER PAIN AT THIS TIME. ALERT AND ORIENTED, JUST FINISHED EATING DINNER AND WATCHING TV.
--- NOTE | 2022-04-17 23:02 | NUR ---
CARE ASSUMPTION: RECEIVED REPORT FROM DAVID, DINKEY SKINNER. PATIENT TRANSFERRED TO PCU BED USING LIFT SHEET AND 6 STAFF MEMBERS. PATIENT HR >120, OTHER VS WNL. COMPLAINS OF ABDOMINAL PAIN, DENIES SOB OR CHEST PAIN, NO N/V/D OR BLOODY STOOLS AT THIS TIME. CHANGED PATIENT'S BEDDING AND APPLIED ATTENDS - PATIENT INCONTINENT. L HAND IV REMOVED NOT FLUSHING AND PAINFUL TO PATIENT. COOPERATIVE WITH CARES THOUGH WEAK. USES CALL LIGHT APPROPRIATELY. BED LOW WITH CALL LIGHT IN REACH.
[2022-04-18 00:08] LABS: HBSAG SCREEN Negative (Negative); HCV AB <0.1 (0.0-0.9); HEP A AB, IGM Negative (Negative); HEP B CORE AB, IGM Negative (Negative)
--- NOTE | 2022-04-18 00:23 | NUR ---
UPDATE: PATIENT STOOD AT BEDSIDE AND PIVOTED TO BSC WITH GAIT BELT, 2 STAFF, AND FWW ASSISTANCE. PATIENT DID NOT URINATE AND NEEDED MAX ASSIST TO GET BACK INTO BED. PUREWICK PLACED AT 2350.
[2022-04-18 04:59] LABS: BASOPHILS ABSOLUTE AUTO 0.02 K/mm3 (0.00-0.23); BASOPHILS PERCENT AUTO 0 % (0-2); EOSINOPHILS ABSOLUTE AUTO 0.15 K/mm3 (0.00-0.68); EOSINOPHILS PERCENT AUTO 1 % (0-6); Hematocrit 23.1 % (33.0-51.0); Hemoglobin 7.3 g/dL (11.5-16.0); IMMATURE GRAN ABSOLUTE AUTO 0.18 K/mm3 (0.00-0.10); IMMATURE GRAN PERCENT AUTO 2 % (0-1); LYMPHOCYTES PERCENT AUTO 10 % (21-46); MONOCYTES ABSOLUTE AUTO 0.84 K/mm3 (0.16-1.47); MONOCYTES PERCENT AUTO 8 % (4-13); Mean Corpuscular HGB 27.7 pg (26.0-34.0); Mean Corpuscular HGB Conc 31.6 g/dL (31.5-36.5); Mean Corpuscular Volume 88 fL (80-100); Mean Platelet Volume 11.1 fL (9.1-12.4); NEUTROPHILS ABSOLUTE AUTO 8.25 K/mm3 (1.96-9.15); NEUTROPHILS PERCENT AUTO 78 % (41-73); NRBC ABSOLUTE 0.08 K/mm3 (0.00-0.02); NRBC Auto 0.8 /100 WBC (0.0-0.2); Platelet Count 141 K/mm3 (150-400); RDW Coefficient Variation 19.6 % (11.7-14.2); RDW Standard Deviation 58.3 fL (35.1-46.3); Red Blood Cell Count 2.64 M/mm3 (3.80-5.20); White Blood Cell Count 10.54 K/mm3 (4.00-11.30)
[2022-04-18 05:22] LABS: Albumin, Blood 2.4 g/dL (3.4-5.0); Albumin/Globulin Ratio 0.9 (0.8-1.8); Bilirubin, Total 0.6 mg/dL (0.1-1.0); Bun/Creatinine Ratio 40.7 (12.0-20.0); Calcium, Blood 7.1 mg/dL (8.5-10.1); Creatinine, Blood 1.5 mg/dL (0.40-1.00); Globulin, Blood 2.8 g/dL (2.2-4.0); Magnesium, Blood 1.9 mg/dL (1.6-2.4); Potassium, Blood 3.4 mmol/L (3.5-5.5); Total Protein, Blood 5.2 g/dL (6.4-8.2)
--- NOTE | 2022-04-18 05:41 | NUR ---
SHIFT SUMMARY: PATIENT HR 110-30 CHRONIC AFIB, OTHER VSS ON RA. PATIENT COMPLAINS OF EPIGASTRIC PAIN AND "CROTCH PAIN." MEDICATED PER EMAR. PUREWICK WAS REMOVED AN HOUR AFTER PLACEMENT WITH NO OUTPUT. NO BMS THIS SHIFT. PATIENT'S INNER LABIA IS VERY EXCORIATED AND PATIENT STATES SHE "DOESN'T WANT TO PEE CAUSE THEN YOU'LL HAVE TO CLEAN ME AND IT HURTS TOO BAD." PATIENT HAD SOLANO PLACED IN ICU BUT REQUESTED IT BE REMOVED PRIOR TO TRANSFER THE TUBING WAS PAINFUL. PATIENT IS ANXIOUS AT TIMES AND USES CALL LIGHT FREQUENTLY. EDUCATED ON ISOLATION STATUS AND PATIENT STATES, "I JUST WANT SOMEONE TO UNDERSTAND HOW MISERABLE I AM." PROVIDED THERAPEUTIC LISTENING. OFFERED SUGGESTIONS THAT MAY PROVIDE SOME COMFORT FOR PATIENT BUT PATIENT REFUSED. BED LOW WITH CALL LIGHT IN REACH. WILL REPORT TO ONCOMING RN.
[2022-04-18] MEDS ORDERED: Isosorbide Mono30 MG PO (09:40)
[2022-04-18] MEDS ORDERED: NOVOLIN 70100 UNIT/3 SC (09:40)
[2022-04-18] MEDS ORDERED: OZEMPIC0.25 MG/0. SC (09:41)
--- NOTE | 2022-04-18 18:10 | NUR ---
SHIFT SUMMARY PT A/O X4; PLEASANT AND COOPERATIVE WITH CARE. 2 ASSIST W/FWW/GB TO THE BSC. C/O ABD PAIN AND TREATED PER EMR. FREQUENT AND URGENT URINATION. PT IS VOIDING VERY LITTLE BUT PO INTAKE IS ALSO POOR. NO BM THIS SHIFT. VSS.
--- NOTE | 2022-04-18 21:29 | NUR ---
CARE ASSUMPTION: PATIENT REPORTS 6/10 PAIN IN ABDOMEN AT BEGINNING OF SHIFT. MEDICATED PER EMAR. DENIES SOB, CHEST PAIN, N/V/D. HR 110-120S, AFEBRILE, STABLE ON RA, BP WNL. AMBULATES WITH ASSIST TO BSC. BED LOW WITH CALL LIGHT IN REACH.
[2022-04-19 06:04] LABS: BASOPHILS ABSOLUTE AUTO 0.02 K/mm3 (0.00-0.23); BASOPHILS PERCENT AUTO 0 % (0-2); EOSINOPHILS ABSOLUTE AUTO 0.18 K/mm3 (0.00-0.68); EOSINOPHILS PERCENT AUTO 1 % (0-6); Hematocrit 24.1 % (33.0-51.0); Hemoglobin 7.7 g/dL (11.5-16.0); IMMATURE GRAN ABSOLUTE AUTO 0.17 K/mm3 (0.00-0.10); IMMATURE GRAN PERCENT AUTO 1 % (0-1); LYMPHOCYTES ABSOLUTE AUTO 1.13 K/mm3 (0.84-5.20); LYMPHOCYTES PERCENT AUTO 9 % (21-46); MONOCYTES ABSOLUTE AUTO 0.95 K/mm3 (0.16-1.47); MONOCYTES PERCENT AUTO 7 % (4-13); Mean Corpuscular HGB 27.7 pg (26.0-34.0); Mean Corpuscular Volume 87 fL (80-100); NEUTROPHILS ABSOLUTE AUTO 10.53 K/mm3 (1.96-9.15); NEUTROPHILS PERCENT AUTO 81 % (41-73); NRBC ABSOLUTE 0.07 K/mm3 (0.00-0.02); NRBC Auto 0.5 /100 WBC (0.0-0.2); Platelet Count 167 K/mm3 (150-400); RDW Standard Deviation 60.1 fL (35.1-46.3); Red Blood Cell Count 2.78 M/mm3 (3.80-5.20); White Blood Cell Count 12.98 K/mm3 (4.00-11.30)
--- NOTE | 2022-04-19 06:07 | NUR ---
SHIFT SUMMARY: PATIENT VS WNL, NO BMS, DENIES N/V AND CHEST PAIN. ABDOMEN CONTINUES TO CAUSE HER PAIN - MEDICATED PER EMAR. PATIENT IS STAND AND PIVOT WITH FWW TO BSC. DOES NOT ASSIST WITH REPOSITIONING AND REQUIRES TWO PEOPLE TO BOOST. USES CALL LIGHT FREQUENTLY AND BECOMES FIXATED ON IDEAS AT TIMES - THIS AM SHE IS ASKING ABOUT GI SCOPE AND WHEN IT WILL TAKE PLACE. RE-EDUCATED PATIENT. NEW IV WAS PLACED IN CHUCKY AND FLUSHES WELL. BED LOW WITH CALL LIGHT IN REACH. WILL REPORT TO ONCOMING RN.
[2022-04-19 06:13] LABS: Albumin, Blood 2.5 g/dL (3.4-5.0); Albumin/Globulin Ratio 0.8 (0.8-1.8); Bilirubin, Total 0.8 mg/dL (0.1-1.0); Bun/Creatinine Ratio 34.7 (12.0-20.0); Calcium, Blood 7.6 mg/dL (8.5-10.1); Creatinine, Blood 1.5 mg/dL (0.40-1.00); Potassium, Blood 3.4 mmol/L (3.5-5.5); Total Protein, Blood 5.5 g/dL (6.4-8.2)
--- NOTE | 2022-04-19 12:58 | NUR ---
PT A&O X4, CALLS APPROPRIATELY, VITALS HRR 130-160'S THIS MORNING PT WAS ALSO C/O ABDOMOMINAL PAIN 01/13 PT WAS GIVEN TYLENOL ALSO RECEIVED ADDITIONAL DOSE OF 12.5MG PO METOPROLOL HRR WENT DOWN TO 100-120'S PT DENIES CHEST PAIN/PRESSURE, BP SYSTOLIC 110'S MAP ABOVE 60, SATS ABOVE 95% ON RA, AFEBRILE. DR GUTIERREZ WENT SAW PT TODAY PLANNING ON DOING UPPER GI SCOPE LATER THIS AFTERNOON INSTUCTED TO KEEP PT NPO AT THIS TIME. PT WITH POOR APPETITE NOT WANTING TO EAT OR DRINK MUCH SHE MIGHT GET SICK AND THROW UP. NO COMPLAINS AT THIS TIME, PT IN BED RESTING COMFORTABLY GOT UP IN THE BSC WITH 2 PA, REFUSED THERAPY TODAY DUE TO ABD PAIN. WILL REPORT TO SELVIN VU
[2022-04-19 15:00] LABS: Hematocrit 24.5 % (33.0-51.0); Hemoglobin 7.9 g/dL (11.5-16.0)
--- NOTE | 2022-04-19 17:03 | NUR ---
Assumed care of patient at approx 1315. This rn agrees with previous returned materials inspector. Per tele pt hr 130-160's discussed with Dr Rajan, new order for h&h and continue with current medication schedule, adminsitered metoprolol, pt hr continues to be elevated an hour later, notified Dr Rajan, new orders for iv metoprolol hold if systolic bp less than 100. Other vss. No other acute changes noted. Will continue to monitor until report given to oncoming rn.
--- NOTE | 2022-04-20 | NUR ---
UPDATE PT REMAINS TACHYCARDIC WITH RATE 100S-140S DESPITE ONE TIME DOSE OF IV METOPROLOL. DR JULIO NOTIFIED, PLAN TO INCREASE SCHEDULED PO DOSE. PT DENIES CP OR PALPITATIONS.
[2022-04-20 04:15] LABS: BASOPHILS ABSOLUTE AUTO 0.01 K/mm3 (0.00-0.23); BASOPHILS PERCENT AUTO 0 % (0-2); EOSINOPHILS PERCENT AUTO 1 % (0-6); Hematocrit 24.1 % (33.0-51.0); Hemoglobin 7.6 g/dL (11.5-16.0); IMMATURE GRAN ABSOLUTE AUTO 0.15 K/mm3 (0.00-0.10); IMMATURE GRAN PERCENT AUTO 1 % (0-1); LYMPHOCYTES PERCENT AUTO 9 % (21-46); MONOCYTES ABSOLUTE AUTO 0.96 K/mm3 (0.16-1.47); MONOCYTES PERCENT AUTO 9 % (4-13); Mean Corpuscular HGB 27.5 pg (26.0-34.0); Mean Corpuscular HGB Conc 31.5 g/dL (31.5-36.5); Mean Corpuscular Volume 87 fL (80-100); Mean Platelet Volume 11.1 fL (9.1-12.4); NEUTROPHILS ABSOLUTE AUTO 9.02 K/mm3 (1.96-9.15); NEUTROPHILS PERCENT AUTO 80 % (41-73); NRBC ABSOLUTE 0.05 K/mm3 (0.00-0.02); NRBC Auto 0.4 /100 WBC (0.0-0.2); Platelet Count 186 K/mm3 (150-400); RDW Coefficient Variation 20.8 % (11.7-14.2); RDW Standard Deviation 63.7 fL (35.1-46.3); Red Blood Cell Count 2.76 M/mm3 (3.80-5.20); White Blood Cell Count 11.24 K/mm3 (4.00-11.30)
[2022-04-20 04:37] LABS: Albumin, Blood 2.4 g/dL (3.4-5.0); Albumin/Globulin Ratio 0.8 (0.8-1.8); Bilirubin, Total 1.1 mg/dL (0.1-1.0); Bun/Creatinine Ratio 30.1 (12.0-20.0); Calcium, Blood 7.3 mg/dL (8.5-10.1); Creatinine, Blood 1.93 mg/dL (0.40-1.00); Globulin, Blood 3.1 g/dL (2.2-4.0); Potassium, Blood 3.7 mmol/L (3.5-5.5); Total Protein, Blood 5.5 g/dL (6.4-8.2)
--- NOTE | 2022-04-20 05:35 | NUR ---
SHIFT SUMMARY PT AWAKE FOR MOST OF THE NIGHT. SHE IS A&OX3 BUT OCCASIONALLY MAKES NONSENSICAL STATEMENTS DURING CONVERSATION. SHE HAS DIFFICULTY FINDING WORDS AND CAN BE SLOW TO RESPOND. SHE REPORTS FEELING ANXIOUS AND ATTEMPTING TO GET OUT OF BED. PROVIDED THERAPEUTIC COMMUNICATION AND REASSURANCE. PT ASSISTED TO BEDSIDE COMMODE TWICE THIS SHIFT. SMEAR BM WITH SMALL AMOUNT OF RED. PT C/O EPIGASTRIC PAIN. BOWEL TONES ACTIVE, AREA IS NONTENDER TO PALPATION. PT IS UNABLE TO DESCRIBE PAIN AND WHEN ASKED WHERE EXACTLY THE PAIN IS SHE POINTS ACROSS EPIGASTRIC REGION. PT CONTINENT OF URINE WITH 2 UNMEASURED VOIDS THIS SHIFT. IV REMAINS IN CHUCKY. PT HAS BEEN IN AFIB WITH RATE VARYING 100S-150S. HR INCREASES WITH ACTIVITY. PT DENIES CP. HOSPITALIST RESIDENT AWARE OF TACHYCARDIA. SBP 90S-130S WITH MAP >65. LUNGS CLEAR AND DIMINISHED THROUGHOUT. SPO2 >93% ON RA, NO RESPIRATORY DISTRESS. BED ALARM ON, BED IN LOWEST POSITION, CALL LIGHT WITHIN REACH. WILL REPORT TO ONCOMING RN.
--- NOTE | 2022-04-20 14:51 | NUR ---
UPDATE PT UP TO BEDSIDE COMMODE WITH 2 PERSON ASSIST. NO ELEMINATION. PT HAD BM THAT WAS LIWUID AND BRIGHT RED. DR NOTIFIED, H&H ORDERED.
[2022-04-20 16:19] LABS: Hematocrit 29.3 % (33.0-51.0); Hemoglobin 9.5 g/dL (11.5-16.0)
--- NOTE | 2022-04-20 17:47 | NUR ---
SHIFT SUMMARY PT A/OX3, CONFUSED AND ANXIOUS. PT REPORTS ABD PAIN IN LUQ, NOT ALWAYS ABLE TO GIVE LEVEL OF PAIN ON 1-10 NUMERIC SCALE. PT HR A-FIB ALL SHIFT RANGING 120-170'S. CARDIOLOGY CONSULTED, DIGOXIN AND CARVEDILOL ORDERED. PT HR INCREASED TO 150-170'S WHILE SITTING AT EDGE OF BED. OTHER VSS THROUGHOUT SHIFT WITH O2 SATS 90-100'S ON RA. PT AHD BLOODY LOOSE STOOL TODAY, DR NOTIFIED AND H&H ORDERED. PT RECIEVED 1 UNIT OF PRBC DURING SHIFT.
--- NOTE | 2022-04-20 19:30 | NUR ---
\ASSUMPTION OF CARE REPORT RECEIVED AT THE BEDSIDE WITH THE AM NURSE. PT NOTED TO BE IN THE CHAIR. NO ACUTE DISTRESS NOTED, BUT THE PT C/O OF SOME GENERALIZED ACHES AND PAINS, ESPECIALLY IN LEGS. PT MEDICATIED WITH TYLENOL IN THE PAST AND HAS WORKED. PT ON ROOM AND SAT IS 96% SPOT CHECK AT REST. PT ASSTED TO BED WITH THIS RN AND HER WALKER. PT IS A 2 PERSON ASSIST TO REPOSITION IN BED. ATTENDS CHANGED, SHANICE CARE AND EXCORIATION CARE ON FOLDS COMPLETED WITH TECH ASSIST AND PT FLOATED ON PILLOWS IN BED. PT VITALS ARE STABLE AT THIS TIME. PT SAFE AND COMFORTABLE IN BED WITH BED IN LOW POSITION, WHEELS LOCKED. PT SIDERAILS UPX2 AND CALL LIGHT IN REACH OF PT. WILL CONTINUE TO MONITOR.
--- NOTE | 2022-04-21 | NUR ---
FOLLOW UP ASSESSMENT PT HAS BEEN STABLE SINCE MY LAST ASSESSMENT, ONLY REQUIRING REPOSITIONING AND AND ATTENDS CHANGES AT THIS TIME. PT HR CONTROLLED WITH MEDS OPTIMIZED. PT BP NOTED TO BE ON THE SOFTER SIDE BUT MAP IS >65. PT C/O OF SLIGHT HEADACHE AND MEDICATED WITH TYLENOL. PT BREATHING COMFORTANLY ON ROOM AIR AT THIS TIME. NO ACUTE DISTRESS NOTED. WILL CONTINUE TO MONITOR.
[2022-04-21 05:23] LABS: BASOPHILS ABSOLUTE AUTO 0.02 K/mm3 (0.00-0.23); BASOPHILS PERCENT AUTO 0 % (0-2); EOSINOPHILS ABSOLUTE AUTO 0.11 K/mm3 (0.00-0.68); EOSINOPHILS PERCENT AUTO 1 % (0-6); Hematocrit 29.1 % (33.0-51.0); Hemoglobin 9.4 g/dL (11.5-16.0); IMMATURE GRAN PERCENT AUTO 1 % (0-1); LYMPHOCYTES ABSOLUTE AUTO 0.85 K/mm3 (0.84-5.20); LYMPHOCYTES PERCENT AUTO 8 % (21-46); MONOCYTES ABSOLUTE AUTO 0.96 K/mm3 (0.16-1.47); MONOCYTES PERCENT AUTO 9 % (4-13); Mean Corpuscular HGB 27.2 pg (26.0-34.0); Mean Corpuscular HGB Conc 32.3 g/dL (31.5-36.5); Mean Corpuscular Volume 84 fL (80-100); Mean Platelet Volume 10.6 fL (9.1-12.4); NEUTROPHILS PERCENT AUTO 81 % (41-73); NRBC ABSOLUTE 0.03 K/mm3 (0.00-0.02); NRBC Auto 0.3 /100 WBC (0.0-0.2); Platelet Count 194 K/mm3 (150-400); RDW Coefficient Variation 20.1 % (11.7-14.2); RDW Standard Deviation 57.6 fL (35.1-46.3); Red Blood Cell Count 3.45 M/mm3 (3.80-5.20); White Blood Cell Count 10.64 K/mm3 (4.00-11.30)
[2022-04-21 05:56] LABS: Albumin, Blood 2.5 g/dL (3.4-5.0); Albumin/Globulin Ratio 0.8 (0.8-1.8); Bilirubin, Total 1.7 mg/dL (0.1-1.0); Calcium, Blood 7.9 mg/dL (8.5-10.1); Creatinine, Blood 2.07 mg/dL (0.40-1.00); Globulin, Blood 3.1 g/dL (2.2-4.0); Potassium, Blood 3.5 mmol/L (3.5-5.5); Total Protein, Blood 5.6 g/dL (6.4-8.2)
--- NOTE | 2022-04-21 05:59 | NUR ---
SHIFT SUMMARY PT HAS HAD A RESTLESS NIGHT. PM MEDS GIVEN AND PT RESTED FOR SOME TIME, BUT THEN HAS BEEN AWAKE SINCE ABOUT 2 AM INTERMITTENTLY CONFUSED. PT C/O OF ABDOMINAL PAIN STILL, HGB HOLDING BUT ABDOMEN DOES APPEAR DISTENDED AND PT C/O OF PAIN TO THE TOUCH. INFORMED THE CHARGE NURSE IN PCU. PT WAS GIVEN SOME TYLENOL FOR PAIN THIS HAS BEEN HELPING SOME, PER THE PATIENT, BUT NOW IS NOT BEING EFFECTIVE. VITALS HAVE REMAINED STABLE, HOWEVER. WILL CONTINUE TO MONITOR.
--- NOTE | 2022-04-21 07:34 | NUR ---
Pt c/o ongoing discomfort, right side of abdomen. Said she felt like she needed to void. Pt was able to get to side of bed, dangling legs, with verbal cues and encouragement only. Able also to stand and hold on to walker without assistance. Small amount of brown stool incontinence noted in attends. Sitting on bedside commode, Heart rate up to 133-140 initially, down to 120 after a few minutes. She tolerated it well. Then assisted to recliner chair for breakfast.
[2022-04-21 16:49] LABS: Hematocrit 31.8 % (33.0-51.0); Hemoglobin 10.3 g/dL (11.5-16.0)
--- NOTE | 2022-04-21 18:22 | NUR ---
SHIFT SUMMARY PT A/O X3 WITH SOME CONFUSION. PT HR CONTROLED A-FIB WITH A RATE RANGING 90-100'S. PT SBP'S SOFT AT 100-110'S. OTHER VSS THROUGHOUT SHIFT WITH O2 SATS IN THE HIGH 90'S ON RA. PT STARTED ON PPN AT A RATE OF 20ML/HR FOR 12 HRS, ORDERS IN CHART. PT UP TO RECLINER AND COMMODE WITH 1 PERSIN ASSIST AND FWW, TOLERATED FAIR. PT REPORTED ABDOMINAL PAIN THROUGHOUT SHIFT WITH LITTLE RELIEF FROM TYLENOL. PT REPORTED LOWER BACK PAIN, HEAT PAD APPLIED, PT REPORTS SOME RELIEF.
[2022-04-22 04:54] LABS: Hematocrit 27.7 % (33.0-51.0); Hemoglobin 8.8 g/dL (11.5-16.0); Mean Corpuscular HGB 26.8 pg (26.0-34.0); Mean Corpuscular HGB Conc 31.8 g/dL (31.5-36.5); Mean Corpuscular Volume 85 fL (80-100); Mean Platelet Volume 11.1 fL (9.1-12.4); NRBC ABSOLUTE 0.02 K/mm3 (0.00-0.02); NRBC Auto 0.3 /100 WBC (0.0-0.2); Platelet Count 208 K/mm3 (150-400); RDW Standard Deviation 59.6 fL (35.1-46.3); Red Blood Cell Count 3.28 M/mm3 (3.80-5.20); White Blood Cell Count 7.15 K/mm3 (4.00-11.30)
[2022-04-22 05:29] LABS: Alanine Aminotransfer (ALT/SGP 39 U/L (12-78); Albumin, Blood 2.2 g/dL (3.4-5.0); Albumin/Globulin Ratio 0.7 (0.8-1.8); Alk Phos 88 U/L (50-136); Anion Gap 10 mmol/L (6-16); Aspartate Aminotrans (AST/SGOT 25 U/L (12-37); Bilirubin, Total 1.9 mg/dL (0.1-1.0); Blood Urea Nitrogen 70 mg/dL (8-24); Bun/Creatinine Ratio 34.5 (12.0-20.0); CO2, Blood 27 mmol/L (21-32); Calcium, Blood 7.6 mg/dL (8.5-10.1); Chloride, Blood 95 mmol/L (98-108); Creatinine, Blood 2.03 mg/dL (0.40-1.00); Globulin, Blood 3.2 g/dL (2.2-4.0); Glomerular Filtration Rate 25 (60-); Glucose, Blood 140 mg/dL (70-99); Magnesium, Blood 1.8 mg/dL (1.6-2.4); Phosphorus, Blood 3.9 mg/dL (2.5-4.9); Potassium, Blood 3.3 mmol/L (3.5-5.5); Sodium, Blood 132 mmol/L (136-145); Total Protein, Blood 5.4 g/dL (6.4-8.2); Triglycerides 129 mg/dL (30-160)
[2022-04-22 06:15] LABS: BAND PERCENT MAN 20 % (0-8); BASOPHILS ABSOLUTE MAN 0.14 K/mm3 (0.00-0.23); BASOPHILS PERCENT MAN 2 % (0-2); EOSINOPHILS ABSOLUTE MAN 0.14 K/mm3 (0.00-0.68); EOSINOPHILS PERCENT MAN 2 % (0-6); LYMPHOCYTES ABSOLUTE MAN 0.42 K/mm3 (0.84-5.20); LYMPHOCYTES PERCENT MAN 6 % (21-46); MONOCYTES PERCENT MAN 7 % (4-13); NEUTROPHILS ABSOLUTE MAN 5.93 K/mm3 (1.96-9.15); SEG NEUTROPHILS PERCENT MAN 63 % (41-73); TOTAL CELLS COUNTED 100
--- NOTE | 2022-04-22 06:21 | NUR ---
SHIFT SUMMARY PT A&Ox4, CALLS AND COMMUNICATES NEEDS APPROPRIATELY. SpO2> 92% RA. AFIB WITH PVC's, 60-80's. BP SOFT THIS AM, DR. ANGELES NOTIFIED AT APPROXIMATELY 0400 WITH ORDERS RECIEVED FROM 500ml BOLUS. BP IMPOVED WITH SBP IN 110's. PT PAINFUL THROUGHOUT THE NIGHT, CALL TO DR. DE LA GARZA AT APPROXIMATELY 0000 WITH ORDERS RECIEVED FOR TRAMADOL FOR FURTHER PAIN MANAGEMENT. AFTER ADMINISTERING PRN PAIN MANAGTEMENT, REPOSITIONING, AND PROVIDING HEAT THERAPY, PT STILL WITH ACHE IN COCCYX AND ABDOMINAL PAIN. NO OTHER EVENTS THIS SHIFT, WILL CONTINUE TO MONITOR AND PROVIDE CARE UNTIL REPORT TO DAY SHIFT RN.
--- NOTE | 2022-04-22 07:30 | NUR ---
ASSUMED CARE: PT RESTING IN BED AFTER GETTING UP TO BSC WITH NIGHT RN. ON RA SATTING 98%. AFIB ON TELE IN THE 80S. ASKS FOR PAIN MED WITH MED PASS FOR ABDOMINAL PAIN. DENIES OTHER NEEDS AT THIS TIME.
--- NOTE | 2022-04-22 10:41 | NUR ---
DR BUSTILLO CAME TO SEE PT THIS AM. AWARE THAT BOLUS WAS GIVEN LAST PM FOR HYPOTENSION. DR WANTED TO MAKE SURE GI WAS AWARE. DR DURAN WAS ON FOR GI TODAY AND STATES TO CONTINUE MONITORING BECAUSE HE DOES NOT HAVE AN ENDO TEAM TODAY. DR BUSTILLO TO [facility] FURTHER ORDERS.
--- NOTE | 2022-04-22 11:29 | NUR ---
PT TAKEN TO CT VIA GURNEY BY TRANSPORT STAFF
[2022-04-22 12:58] LABS: Hematocrit 31.3 % (33.0-51.0); Hemoglobin 9.6 g/dL (11.5-16.0)
[2022-04-22 13:12] LABS: Magnesium, Blood 1.9 mg/dL (1.6-2.4); Phosphorus, Blood 3.8 mg/dL (2.5-4.9)
--- NOTE | 2022-04-22 13:40 | NUR ---
CALL TO DR BUSTILLO TO DISCUSS ABDOMINAL CT AND H/H RESULTS. NO NEW ORDERS AT THIS TIME.
--- NOTE | 2022-04-22 18:16 | NUR ---
SHIFT SUMMARY: PT TAKEN TO CT TODAY FOR ABDOMINAL PAIN. MEDICATED X2 FOR PAIN THIS SHIFT. PT WORKED WITH PHYSICAL THERAPY DOING BED EXERCISES. PT REQUIRES ENCOURAGEMENT FOR ACTIVITY AND TO PERFORM ADLS. AWAITING GI FOR ENDOSCOPY
--- NOTE | 2022-04-22 23:30 | NUR ---
ASSUMPTION OF CARE: ASSUMED CARE OF PT AT 1900. PT IS A&O X 4, FOLLOWS COMMANDS, AND IS SLOW TO RESPOND VERBALLY. PT APPEARS DROWSY, BUT IS EASILY AROUSED. PT ON RA WITH O2 LEVELS MAINTAINING 98<; LUNG SOUNDS ARE CLEAR THROUGHOUT AND DIM IN THE BASES. S1/S2 ASCULTATED BUT MUFFLED. HR IN THE 50'S, BUT PERIODICALLY DROPS DOWN TO 45-48 AND RECOVERS BACK IN TO THE 50'S. SBP IN THE 100'S WITH A MAP OF 70. PT HAS NO C/O CHEST PAIN AT THIS TIME. PT HAS HYPERACTIVE BS IN ALL FOUR QUADRANTS. ABD IS ROUND, OBESE, AND NON-TENDER. PT HAS PPP X 4 AND WARM EXTREMITIES; CAP REFIL REMAINS < 3 SECONDS. PT USING BEDSIDE COMMODE WITH A ONE-PERSON ASSIST; PT REQUIRES A MODERATE ASSIST WITH BED MOBILITY. SHANICE AREA IS REDDENED; CLEANED WITH WIPES AND CREAM APPLIED TO AFFECTED AREA. BED LOWERED AND CALL LIHGT WITHIN REACH. WILL CONTINUE TO MONITOR THROUGHOUT THE SHIFT.
[2022-04-23 01:18] LABS: Hematocrit 31.9 % (33.0-51.0); Mean Corpuscular HGB 26.8 pg (26.0-34.0); Mean Corpuscular HGB Conc 31.3 g/dL (31.5-36.5); Mean Corpuscular Volume 86 fL (80-100); Mean Platelet Volume 10.3 fL (9.1-12.4); NRBC ABSOLUTE 0.03 K/mm3 (0.00-0.02); NRBC Auto 0.6 /100 WBC (0.0-0.2); Platelet Count 187 K/mm3 (150-400); RDW Standard Deviation 60.5 fL (35.1-46.3); Red Blood Cell Count 3.73 M/mm3 (3.80-5.20); White Blood Cell Count 4.86 K/mm3 (4.00-11.30)
[2022-04-23 01:48] LABS: BAND PERCENT MAN 8 % (0-8); BASOPHILS PERCENT MAN 0 % (0-2); EOSINOPHILS PERCENT MAN 0 % (0-6); LYMPHOCYTES ABSOLUTE MAN 0.48 K/mm3 (0.84-5.20); LYMPHOCYTES PERCENT MAN 10 % (21-46); MONOCYTES ABSOLUTE MAN 0.97 K/mm3 (0.16-1.47); MONOCYTES PERCENT MAN 20 % (4-13); SEG NEUTROPHILS PERCENT MAN 62 % (41-73); TOTAL CELLS COUNTED 100
[2022-04-23 01:50] LABS: Anion Gap 10 mmol/L (6-16); Blood Urea Nitrogen 81 mg/dL (8-24); Bun/Creatinine Ratio 40.9 (12.0-20.0); CO2, Blood 27 mmol/L (21-32); Calcium, Blood 7.7 mg/dL (8.5-10.1); Chloride, Blood 95 mmol/L (98-108); Creatinine, Blood 1.98 mg/dL (0.40-1.00); Digoxin (Lanoxin) 1.11 ug/mL (0.80-2.00); Glomerular Filtration Rate 26 (60-); Glucose, Blood 181 mg/dL (70-99); Magnesium, Blood 1.7 mg/dL (1.6-2.4); Phosphorus, Blood 4.4 mg/dL (2.5-4.9); Potassium, Blood 3.6 mmol/L (3.5-5.5); Sodium, Blood 132 mmol/L (136-145)
--- NOTE | 2022-04-23 06:02 | NUR ---
SHIFT SUMMARY: PT REMAINS A&O X 4 AND ON RA. PT HAS BEEN FOLLOWING COMMANDS ALL NIGHT AND COOPERATIVE WITH CARE. THROUGHOUT THE BEGINNING OF THE SHIFT THE PT WAS BRADYCARDIC WITH HR REACHING LOW 37 AND RECOVERING QUICKLY BACK UP TO THE 50'S; AT 1200 PT BECOME SLIGHTLY HYPOTENSIVE WITH SBP IN THE 90'S. BP MONITOR Q30MIN AT THIS TIME TO MONITOR PT. PT BP STARTED TO IMPROVE THROUGHOUT THE REST OF THE NIGHT AND NOW SBP 100-110'S AND HR IN THE 60-70'S. PT HAS SLEPT THROUGHOUT THE NIGHT. PT HAS HAD C/O ABD PAIN IN HER RIGHT SIDE AND MEDICATED PER EMAR THROUGHOUT THE SHIFT. WILL CONTINUE TO MONITOR UNTIL ONCOMING NURSE ARRIVES.
--- NOTE | 2022-04-23 09:42 | NUR ---
AM NOTE: PATIENT ALERT AND ORIENTDE X4. A LITTLE SLEEPY/DROWSY THIS AM. ABLE TO MOVE ALL EXTREMITIES. ONE PERSON ASSIST TO BSC/RECLINER. UP IN RECLINER AT THIS TIME. DENIES NUMBNESS/TINGLING. NEEDS MOTIVATION WITH TRANSFERS AND SELF CARES. ON ROOM AIR SATING ABOVE 94%. LUNGS SOUNDING CLEAR. DENIES COUGH/SOB. TELE SHOWING AFIB WITH HR 50-70'S. DENIES CHEST PAIN/PRESSURE. PO AM MEDS GIVEN. TRACE/MINIMAL EDEMA TO BUE AND ANKLE/FEET. USING BSC. ATTENDS IN PLACE. COMPLAINS OF SOME NAUSEA THIS AM, MEDICATED PER EMAR WITH ZOFRAN. VERY LITTLE APPEATITE. PPN INFUSING. MODERATE SIZED MARROON STOOL THIS AM JELLY/LIQUID LIKE. CALL PLACED TO DR. CHAVIRA TO UPDATE ON BOWEL MOVEMENT. GROIN EXCORATED, CLEANED AND POWDERED/CREAM. LEFT TOES WITH WOUNDS, CLEANED AND DRESSED PER WOUND CARE ORDERS THIS AM. Q2 TURNING AND NEEDED. CHECKING BLOOD SUGARS WITH MEALS. CALL LIGHT IN REACH. COUSIN VISITING AT BEDSIDE. DENIES NEEDS AT THIS TIME. WILL CONTINUE TO MONITOR.
[2022-04-23 12:31] LABS: Hematocrit 31.1 % (33.0-51.0); Hemoglobin 9.9 g/dL (11.5-16.0)
--- NOTE | 2022-04-23 16:54 | NUR ---
PATIENT SBP 70-80'S. CALL PLACED TO DR. CHAVIRA, NEW ORDERS FOR THIS RN TO PLACE. STAT H&H AND 500ML NS BOLUS. LABS DRAWN AND BOLUS INFUSING AT THIS TIME. PATIENT AND FAMILY AT BEDSIDE UPDATED. PATIENT DENIES LOW BP SYMPTOMS. WILL CONTINUE TO MONITOR.
[2022-04-23 16:59] LABS: Hematocrit 27.4 % (33.0-51.0); Hemoglobin 8.8 g/dL (11.5-16.0)
--- NOTE | 2022-04-23 17:50 | NUR ---
PATIENT BP REMAINS LOW AFTER 500 ML NS BOLUS. CALL PLACED TO DR. CHAVIRA. ORDERS FOR MAINT FLUID AT 125 ML/HR X1 BAG AND 1 UNIT OF PRBC TO INFUSE STAT. NS INFUSING AT THIS TIME. BLOOD SLIP SENT AND THIS RN WAITING FOR BLOOD. BP 83/36. PATIENT CONTINUES TO DENY SYMTPOMS. NO SIGNS OF BLEEDING. COUSIN AT BEDSIDE. PATIENT AND FAMILY UPDATED.
--- NOTE | 2022-04-23 19:33 | NUR ---
shift summary: SEE PREVIOUS NOTE FOR UPDATES. BLOOD PRESSURE IMPROVING, SEE CHARTED VITALS. SPOKE WITH DR. CHAVIRA PRIOR TO SHIFT CHANGE. PLAN TO STAY IN PCU AT THIS TIME. PATIENT CONTINUES TO DENY SYMPTOMS. BLOOD INFUSING. LUNGS SOUNDS REMAIN CLEAR AND DIM IN BASES. PPN AND MAINT FLUID ON STANBY BLOOD INFUSES. PLAN FOR H&H LAB DRAW ONE HOUR POST CURRENT BLOOD INFUSION. NO SIGNS OF BLEEDING. NO BOWEL MOVEMENT SINCE THIS AM. PATIENT CONTINUES TO HAVE INTERMIT ABDOMINAL DISCOMFORT. COUSIN REMAINS AT BEDSIDE. REPORTED OFF TO STEVENSON. CALL LIGHT IN REACH.
[2022-04-23 21:58] LABS: Hematocrit 31.1 % (33.0-51.0); Hemoglobin 10.1 g/dL (11.5-16.0)
--- NOTE | 2022-04-24 04:52 | NUR ---
UPDATE FLUIDS WERE HELD DURING BLOOD ADMINISTRATION, RESTARTED THE PPN ONCE BLOOD WAS FINISHED. CALL TO DR. ANGELES REGARDING THE NEED TO FINISH THE 1L ON NS, ORDERS RECIVED TO DISCONTINUE.
[2022-04-24 05:44] LABS: Bun/Creatinine Ratio 38.9 (12.0-20.0); Calcium, Blood 7.1 mg/dL (8.5-10.1); Creatinine, Blood 2.52 mg/dL (0.40-1.00); Phosphorus, Blood 5.9 mg/dL (2.5-4.9)
[2022-04-24 05:59] LABS: BASOPHILS ABSOLUTE AUTO 0.05 K/mm3 (0.00-0.23); BASOPHILS PERCENT AUTO 1 % (0-2); Hematocrit 30.5 % (33.0-51.0); Hemoglobin 9.8 g/dL (11.5-16.0); LYMPHOCYTES ABSOLUTE AUTO 0.44 K/mm3 (0.84-5.20); LYMPHOCYTES PERCENT AUTO 5 % (21-46); MONOCYTES ABSOLUTE AUTO 1.46 K/mm3 (0.16-1.47); MONOCYTES PERCENT AUTO 17 % (4-13); Mean Corpuscular HGB 27.1 pg (26.0-34.0); Mean Corpuscular HGB Conc 32.1 g/dL (31.5-36.5); Mean Corpuscular Volume 85 fL (80-100); Mean Platelet Volume 10.7 fL (9.1-12.4); NRBC ABSOLUTE 0.08 K/mm3 (0.00-0.02); NRBC Auto 0.9 /100 WBC (0.0-0.2); Platelet Count 235 K/mm3 (150-400); RDW Standard Deviation 56.2 fL (35.1-46.3); Red Blood Cell Count 3.61 M/mm3 (3.80-5.20); White Blood Cell Count 8.68 K/mm3 (4.00-11.30)
[2022-04-24 06:04] LABS: EOSINOPHILS ABSOLUTE AUTO 0.02 K/mm3 (0.00-0.68); EOSINOPHILS PERCENT AUTO 0 % (0-6); IMMATURE GRAN ABSOLUTE AUTO 0.15 K/mm3 (0.00-0.10); IMMATURE GRAN PERCENT AUTO 2 % (0-1); NEUTROPHILS ABSOLUTE AUTO 6.56 K/mm3 (1.96-9.15); NEUTROPHILS PERCENT AUTO 76 % (41-73)
--- NOTE | 2022-04-24 06:08 | NUR ---
SHIFT SUMMARY PT A&Ox4, CALLS AND COMMUNICATES NEEDS APPROPRIATELY. SpO2> 92% RA, DENIES SOB. AFIB 50-70's, BP SOFT WITH SBP RANGING FROM 90-100's, MAP>60, PT DENIES FEELING SYMPTOMATIC AND DOES NOT SHOW SYMPTOMS OF LOW BP. DENIES CP/PRESSURE. PPN INFUSING AT 70mls/hr PER EMAR. PT WITHOUT BM THIS SHIFT. PT SLEPT COMFORTABLY, DENYING PAIN THROUGHOUT THE SHIFT. WILL CONTINUE TO MONITOR AND PROVIDE CARE UNTIL REPORT TO DAY SHIFT RN.
[2022-04-24] MEDS ORDERED: ELIQUIS2.5 MG (10:31)
[2022-04-24 11:11] LABS: Source, Urine Foley catheter
[2022-04-24 11:21] LABS: Appearance, Urine Clear (Clear); Blood, Urine Neg (Neg); Color, Urine Yellow (P-Yellow); Glucose Qualitative, Urine Neg (Neg); Ketones, Urine Neg (Neg); Leukocyte Esterase, Urine Neg (Neg); Nitrite, Urine Neg (Neg); Protein, Urine 1+ (Neg); Urobilinogen, Urine 1+ (Normal)
[2022-04-24 11:43] LABS: Bilirubin, Urine 2+ (Neg)
--- NOTE | 2022-04-24 14:30 | NUR ---
Initial palliative care consult: Krista is a 72 year old with a history of DM type 2, pulmonary HTN, a-fib with RVR, obesity, gout, CKD stage 3. She was admitted on 04/14/22 with sepsis, a-fib with RVR and a GIB. Asked by Dr. Martinez and nursing to meet with pt and family to determine goals of care for Krista. Spoke with bedside nursing (Lissette) prior to entering room. Nursing reports that mulitple family members are involved. Lissette encouraged pt's dtr Jazmin to have a point person for information and Lissette tells this appeals writer that Jazmin stated that Patrice, her brother, should be that person. Krista's two cousins, Sumaya and Jason are at her bedside and have many questions about the current plan of care. Krista gave this appeals writer verbal permission to speak to her cousins about her condition and care. Krista appears to be quite weak. She answers questions with yes and no answers however she doesn't open her eyes to engage fully in the conversation. Her cousin Sumaya asks many questions about the EGD, a-fib, plan of care. Answered family questions. The merchant mill utility worker is planning to visit with pt again later today or tomorrow. Explained to family that unless Krista becomes more stable with her heart that she wouldn't be a candidate for any procedures. Explained risk vs. benefit and family verbalized understanding. During this visit her heart rate is in the 70s. Krista states that she wants to get better when asked. Family encourages her to participate in her care. Jason and Sumaya both report that Krista has always been more sedentary and not highly motivated to do things for herself since she was a child. Explained that the current plan of care is supportive and testing can be done if her condition stabilizes. Also explained that if Krista's condition worsens that futher workups may not be possible that a possible shift in her care may need to be considered. Sumaya and Jason verbalized understanding and brought up that she is a DNR and that if her heart stopped that we would allow her to naturally. Jason states that Patrice is planning to visit this week. Updated nursing with conversation and current plan of care. Pt and family hope that she will become stable enough to undergo futher workup. Pt remains a DNR at this time. PC to continue to follow for advanced care planning and pt and family support and education prn.
--- NOTE | 2022-04-24 18:23 | NUR ---
SHIFT SUMMARY; ASSUMED CARE AT 0700, A/A/OX3. ALERT BUT SLOW TO RESPOND TO QUESTIONS. REPORTS PAIN TO ABDOMEN T/O SHIFT. NO BM OR EVIDENCE OF GI BLEEDING. PPN INFUSING AT 70ML/HR. PT/OT ATTEMPTED TO WORK WITH PT. PT REPORTS "I CAN'T" WHEN PROMPTED TO ASSIST WITH ANY MOVEMENT. PALLATIVE CARE CONSULT TODAY. SPOKE WITH GI DOCTOR IN AM FOR PLAN. PER DR. HARRIS MUST BE CLEARED BY CARDIOLOGY AND ANESTHESIA BEFORE REATTEMPTING SCOPE. REFUSES PO FLUIDS OR FOOD. ABDOMEN DISTENDED AND FIRM. SPOKE WITH DR. DAVIDSNO IN AFTERNOON REGARDING CONTINUED C/O PAIN, HYPOACTIVE BOWEL TONES AND DISTENTION. SURGICAL CONSULT ORDERED, PT EVALUATED BY DR. CASTRO FOR POSSIBLE ILLEOUS. CHANGED TO NPO STATUS. NG TUBE ORDERED. VSS, AFIB WITH HR 60-80. WILL CONTINUE TO MONITOR AND TREAT UNTIL CHANGE OF SHIFT.
--- NOTE | 2022-04-24 21:20 | NUR ---
NG INSERTION MEASURED PLACEMENT LENGTH AND MARKED TUBE WITH TAPE. ONCE TAPE MARKER WAS AT NARES, BROWN/BATES LIQUID FILLED THE TUBE. PT NOT COOPERATIVE DURING INSERTION, TUBE SECURED TO NOSE WITH TAPE, PT TOLERATING PLACEMENT. X-RAY CALLED FOR STAT IMAGING TO COMFIRM PLACEMENT. WAITING FOR CONFIRMATION.
--- NOTE | 2022-04-24 23:26 | NUR ---
UPDATE NG TUBE PLACEMENT CONFIRMATION RECIEVED. NG TUBE CONNECTED TO LOW INTERMITTENT SUCTION. BATES/ORANGE LIQUID CONTENTS BEGINING TO EMPTY IN TO SUCTION CANISTER. PT TOLERATING WELL.
--- NOTE | 2022-04-25 01:19 | NUR ---
UPDATE NG TUBE HAS EMPTIED 1775mls SINCE BEING PLACED AT APPROXIMATELY 2130. CONTENTS HAVE NOT CHANGED IN COLOR, STILL BATES/ORANGE WITH STOOL LIKE ODOR. PT ABDOMEN IS STILL VERY FIRM. CALL TO DR. STEWART TO UPDATE AND CLARIFY HOW MUCH HE WOULD LIKE REMOVED AT ONE TIME. DR. STEWART STATED TO LEAVE IT CONNECTED TO LOW INTERMITTENT SUCTION AND THAT HE EXPECTS IT TO CONTINUE DRAINING AT THIS RATE INTO THE LATER MORNING OF TODAY. CMP IS ALREADY ORDERED FOR AM LABS TODAY.
[2022-04-25 03:46] LABS: BASOPHILS ABSOLUTE AUTO 0.09 K/mm3 (0.00-0.23); BASOPHILS PERCENT AUTO 1 % (0-2); Hematocrit 31.8 % (33.0-51.0); Hemoglobin 10.3 g/dL (11.5-16.0); LYMPHOCYTES ABSOLUTE AUTO 0.37 K/mm3 (0.84-5.20); LYMPHOCYTES PERCENT AUTO 3 % (21-46); MONOCYTES ABSOLUTE AUTO 1.53 K/mm3 (0.16-1.47); MONOCYTES PERCENT AUTO 13 % (4-13); Mean Corpuscular HGB Conc 32.4 g/dL (31.5-36.5); Mean Corpuscular Volume 83 fL (80-100); Mean Platelet Volume 10.7 fL (9.1-12.4); NRBC Auto 0.9 /100 WBC (0.0-0.2); Platelet Count 223 K/mm3 (150-400); RDW Coefficient Variation 19.6 % (11.7-14.2); RDW Standard Deviation 57.1 fL (35.1-46.3); Red Blood Cell Count 3.82 M/mm3 (3.80-5.20); White Blood Cell Count 11.69 K/mm3 (4.00-11.30)
[2022-04-25 03:50] LABS: EOSINOPHILS ABSOLUTE AUTO 0.01 K/mm3 (0.00-0.68); EOSINOPHILS PERCENT AUTO 0 % (0-6); IMMATURE GRAN ABSOLUTE AUTO 0.16 K/mm3 (0.00-0.10); IMMATURE GRAN PERCENT AUTO 1 % (0-1); NEUTROPHILS ABSOLUTE AUTO 9.53 K/mm3 (1.96-9.15); NEUTROPHILS PERCENT AUTO 81 % (41-73)
[2022-04-25 04:17] LABS: Albumin/Globulin Ratio 0.6 (0.8-1.8); Bilirubin, Total 1.2 mg/dL (0.1-1.0); Bun/Creatinine Ratio 46.6 (12.0-20.0); Calcium, Blood 7.2 mg/dL (8.5-10.1); Creatinine, Blood 2.49 mg/dL (0.40-1.00); Globulin, Blood 3.5 g/dL (2.2-4.0); Phosphorus, Blood 5.7 mg/dL (2.5-4.9); Potassium, Blood 4.2 mmol/L (3.5-5.5); Total Protein, Blood 5.5 g/dL (6.4-8.2)
--- NOTE | 2022-04-25 05:53 | NUR ---
SHIFT SUMMARY A&Ox4, VERY WITHDRAWN AND SLOW TO RESPOND. VSS, SpO2> 92% RA, AFIB 70's, BP STABLE WITH SHIFT. PT WITH NO BM OR SIGNS OF BLEEDING THIS SHIFT. NG TUBE PLACED AND CONNECTED TO LOW INTERMITTENT SUCTION PER ORDER, TOTAL OUTPUT OF 1,950mls OF BATES/ORANGE FOUL SMELLING LIQUID. PT STATED THAT HER ABDOMEN DOES FEEL A LITTLE BIT BETTER AFTER THIS. SEE PREVIOUS NOTES, NO OTHER EVENTS THIS SHIFT. WILL CONTINUE TO MONITOR AND PROVIDE CARE UNTIL REPORT TO DAY SHIFT RN.
--- NOTE | 2022-04-25 09:08 | NUR ---
Dr. Martinez here to see the patient, updated oracle drm consultant from Dr. Jama who said that the plan for EGD would be to do it at the end of the hospital stay.
--- NOTE | 2022-04-25 10:15 | NUR ---
ANTONY henriquez applied. Pt given suppository, repositioned more supine to pt's comfort, and oral care given. Pippa Gomez is at the bedside, frequently talking with the patient. She appears exhausted.
--- NOTE | 2022-04-25 13:19 | NUR ---
Theraputic visit with the patient She is very still holding her body tight and slow to reapond. Review of symptoms she has a headache, Her neck and low back are uncomfortable. Her stomach feels tight and sore and queasy. She is not really sleeping just dosing because of the tube. She denies chest pain or shortness of breath. Got her a neck pillow review of prn meds with nursing and suggested adding nausea meds and pain meds. Brought her phone to her and turned on the TV. Will see if family can bring her glasses so she can see. Patent PPS score is 50%. Will see haow she progresses may not qualify for hospice yet. Will monitor.
--- NOTE | 2022-04-25 13:49 | NUR ---
Pt states that her stomach is aching, but that it is better. Denies headache, neck/back ache. Denies her butt hurting. Given Reglan at this time to ease her discomfort. She is lying in bed, with her family at either side; cousin Jason and his .
[2022-04-25 15:26] LABS: Bun/Creatinine Ratio 45.7 (12.0-20.0); Calcium, Blood 6.9 mg/dL (8.5-10.1); Creatinine, Blood 2.47 mg/dL (0.40-1.00); Potassium, Blood 4.1 mmol/L (3.5-5.5)
--- NOTE | 2022-04-25 18:20 | NUR ---
SHIFT SUMMARY PT ORIENTED TO SELF, FAMILY AND PLACE BUT IS NOT CONSISTENTLY RESPONDING TO QUESTIONS. PT MENTAL STATUS IS MILDLY ALTERED, FAMILY ALSO NOTED AND IS CONCERNED ABOUT THIS. FAMILY HAD SEVERAL QUESTIONS ABOUT PT STATUS AND MENTATION CHANGE FROM "SUNDAY WHEN THEY WERE DOWN VISITING". THIS RN AND FAMILY SPOKE ABOUT CONCERNS AND ANSWERED QUESTIONS. PT DENIES SOB, CHEST PAIN AND CHEST PRESSURE. VSS. PT NPO; NG TUBE IN PLACE AND TAPE IN PLACE - DRAINING DARK YELLOW/BROWN FLUID. NG TUBE ON INTERMITTENT SUCTIONING, 400 ML OUT TODAY. SOLANO IN PLACE AND DRAINING TOP GRAVITY. CALL LIGHT IN REACH, PT NOT USING TO CALL. BED IN LOWEST POSITION, FAMILY AT BEDSIDE
--- NOTE | 2022-04-25 19:27 | NUR ---
CBG 69; PROVIDER NOTIFIED. NEW ORDERS TO HOLD INSULIN GLARGINE, GIVE 1/2 BOLUS OF D50 AND RECHECK CBG IN 30 MINUTES. THIS RN GAVE REPORT AND NOTIFIED NEW ONCOMING NURSE
--- NOTE | 2022-04-25 21:33 | NUR ---
UPDATE PT WITH CRACKLES AND WET COUGH UPON ASSESSMENT. PT HAS PPN INFUSING AT 7Omls/hr AND NS INFUSING AT 125mls/hr. CALL TO DR. TOM TO UPDATE, ORDERS RECIEVED TO DC NS.
[2022-04-26 04:54] LABS: Hemoglobin 9.9 g/dL (11.5-16.0); Mean Corpuscular HGB 27.3 pg (26.0-34.0); Mean Corpuscular Volume 83 fL (80-100); Mean Platelet Volume 10.4 fL (9.1-12.4); NRBC ABSOLUTE 0.04 K/mm3 (0.00-0.02); NRBC Auto 0.3 /100 WBC (0.0-0.2); Platelet Count 192 K/mm3 (150-400); RDW Coefficient Variation 19.5 % (11.7-14.2); Red Blood Cell Count 3.62 M/mm3 (3.80-5.20); White Blood Cell Count 11.77 K/mm3 (4.00-11.30)
[2022-04-26 05:16] LABS: Albumin, Blood 1.7 g/dL (3.4-5.0); Albumin/Globulin Ratio 0.5 (0.8-1.8); Bilirubin, Total 0.8 mg/dL (0.1-1.0); Bun/Creatinine Ratio 52.8 (12.0-20.0); Calcium, Blood 6.7 mg/dL (8.5-10.1); Creatinine, Blood 2.29 mg/dL (0.40-1.00); Globulin, Blood 3.5 g/dL (2.2-4.0); Potassium, Blood 3.9 mmol/L (3.5-5.5); Total Protein, Blood 5.2 g/dL (6.4-8.2)
--- NOTE | 2022-04-26 05:23 | NUR ---
SHIFT SUMMARY PT A&Ox4, VERY WITHDRAWN AND SLOW TO RESPOND, BUT ANSWERS ORIENTATION QUESTIONS APPROPRIATELY WHEN SHE DOES RESPOND. VSS, BP STABLE, AFIB 90-100's. SpO2> 92% RA, FINE CRACKLES IN BASES, PT WITH WET, WEAK COUGH. NG TUBE IN PLACE AND CONNECTED TO LOW INTERMITTENT SUCTION, NEW SUCTION CANISTER PLACED AT START OF SHIFT MAKING A TOTAL OF 1,200mls OF BATES/ORANGE, FOUL SMELLING LIQUID EMPTIED THIS SHIFT. PTS ABDOMEN IS NOTICEABLY LESS DISTENDED AND LESS FIRM. SOLANO CATH IN PLACE AND DRAINING TO GRAVITY. PPN INFUSING AT 70mls/hr PER ORDER. SEE PREVIOUS NOTES. WILL REPORT TO DAY SHIFT RN.
[2022-04-26 06:31] LABS: BAND PERCENT MAN 7 % (0-8); BASOPHILS PERCENT MAN 0 % (0-2); EOSINOPHILS PERCENT MAN 0 % (0-6); LYMPHOCYTES % ATYPICAL MANUAL 1 % (0-0); LYMPHOCYTES ABSOLUTE MAN 0.35 K/mm3 (0.84-5.20); LYMPHOCYTES PERCENT MAN 2 % (21-46); MONOCYTES ABSOLUTE MAN 1.41 K/mm3 (0.16-1.47); MONOCYTES PERCENT MAN 12 % (4-13); SEG NEUTROPHILS PERCENT MAN 78 % (41-73); TOTAL CELLS COUNTED 100
--- NOTE | 2022-04-26 08:00 | NUR ---
Pt is not opening her eyes, neither spontaneously nor to request. She is moaning/vocalizing with each expiratory breath. spo2 92% on room air.RR 20/minute, no distress noted. Crackles auscultated in the bases, clear upper lobes after the pt coughed and oral suctioning to evacuate aguilar blood tinges sputum. She continues to have an occasional cough. HR 105, atrial flutter with occasional PVC. B/P 104/61, MAP is 74. Temperature is 98.4. She will answer "what" after I call her name a few times, but she doesn't answer when asked about how she is feeling, if she is in pain, etc. CBG is 100. Urine output clear dark yellow in cobian collection bag.
--- NOTE | 2022-04-26 09:48 | NUR ---
AM ASSESSMENT (729) PT NOT OPENING EYES SPONTANEOUSLY OR TO STIMULI. PT DOES NOT RESPOND TO PAINFUL STIMULI. PT WILL RESPOND WITH "WHAT?" AFTER SEVERAL TIMES OF CALLING HER NAME. PT MOANING BUT UNABLE TO VERBALIZE WHAT IS GOING ON AND NOT RESPONDING TO QUESTIONS. VS; BP 104/61, HR 105, 02 92% ON RA, RR 20. CBG CHECKED; CBG 100.
[2022-04-26 11:48] LABS: Magnesium, Blood 2.2 mg/dL (1.6-2.4); Phosphorus, Blood 3.9 mg/dL (2.5-4.9)
--- NOTE | 2022-04-26 20:07 | NUR ---
ASSESSMENT/ASSUMED CARE PT NONRESPONSIVE TO PAIN. MOANS ONLY. REPOSITIONED TO LEFT SIDE. BP LOW 77/57 MAP 65 RECHECK 86/53 MAP 61. HEART RATE AFIB 100'S. TEMP 102.1 PT GIVEN TYLENOL, COOL CLOTHES TO FOREHEAD AND FAN ON. LUNG COARSE CRACKLES ON ROOMAIR. SPO2 87-88% PLACED ON 3 LITERS O2 SPO2 UP TO 96%. ORAL CARE DONE. TALKED WITH FAMILY REGARDING HYPOTENSION AND LUNG SOUNDS. FAMILY DAUGHTER AND SON WANTING TO GO COMFORT CARE. NOTIFIED DR TOM WHO WILL PLACE ORDERS.
--- NOTE | 2022-04-26 21:07 | NUR ---
ATROPINE GTTS GIVEN
--- NOTE | 2022-04-26 21:41 | NUR ---
FAMILY AT BEDSIDE. REFUSED TURNING AT THIS TIME.
--- NOTE | 2022-04-26 22:41 | NUR ---
PT NONRESPONSIVE. DEEP SUCTION ORALLY UNABLE TO OBTAIN ANYTHING. PT MED WITH ATROPINE FOR GURGLING EVEN AFTER SUCTIONING. PT MED WITH 5 ML SL ROXANOL FOR AIR HUNGER. FAMILY AT BEDSIDE. FAMILY REFUSED TURNING AT THIS TIME
--- NOTE | 2022-04-26 23:52 | NUR ---
PT MED WITH ROXANOL AND ATROPINE FOR AIR HUNGER AND GURGLING. REPOSITIONED TO RIGHT WITH HOB UP. ORAL CARE DONE. FAMILY AT BEDSIDE, SUPPORT GIVEN. PT CONT TO BE NONRESPONSIVE.
--- NOTE | 2022-04-27 01:40 | NUR ---
TOD PT WITHOUT HEART BEAT OR BREATHING. CONFIRM TOD WITH CHARGE NURSE JOSE ANTONIO Trujillo RN
== END 2022-04-27 03:56 | DRG 871 ==
LOC: ER 12:02 → PCU 17:13 → ER 17:13 → ICUW 17:13 → PCU 04-17 20:20
PROVIDERS: Emergency Medicine; Family Medicine; Hospitalist; Internal Medicine; Internal Medicine Critical Care Medicine; Student in an Organized Health Care Education/Training Program; ADMIT Family Medicine
PROC: 3E03329 Introduction of Other Anti-infective into Peripheral Vein, Percutaneous Approach (ICD-10-PCS; principal; 2022-04-14)
PROC: 3E033XZ Introduction of Vasopressor into Peripheral Vein, Percutaneous Approach (ICD-10-PCS; 2022-04-14)
PROC: 02H633Z Insertion of Infusion Device into Right Atrium, Percutaneous Approach (ICD-10-PCS; 2022-04-14)
PROC: 8E0ZXY6 Isolation (ICD-10-PCS; 2022-04-14)
PROC: 0T9B70Z Drainage of Bladder with Drainage Device, Via Natural or Artificial Opening (ICD-10-PCS; 2022-04-15)
PROC: 02HV33Z Insertion of Infusion Device into Superior Vena Cava, Percutaneous Approach (ICD-10-PCS; 2022-04-16)
PROC: 30233N1 Transfusion of Nonautologous Red Blood Cells into Peripheral Vein, Percutaneous Approach (ICD-10-PCS; 2022-04-20)
PROC: 0DH67UZ Insertion of Feeding Device into Stomach, Via Natural or Artificial Opening (ICD-10-PCS; 2022-04-24)
DX: A40.8 Other streptococcal sepsis (principal); G93.41 Metabolic encephalopathy; U07.1 COVID-19; R65.21 Severe sepsis with septic shock; N17.9 Acute kidney failure, unspecified; K56.0 Paralytic ileus; K92.2 Gastrointestinal hemorrhage, unspecified; I48.19 Other persistent atrial fibrillation; K56.609 Unspecified intestinal obstruction, unspecified as to partial versus complete obstruction; E87.1 Hypo-osmolality and hyponatremia; D62 Acute posthemorrhagic anemia; Z51.5 Encounter for palliative care; Z66 Do not resuscitate; R57.8 Other shock; I25.10 Atherosclerotic heart disease of native coronary artery without angina pectoris; I71.4 Abdominal aortic aneurysm, without rupture; E11.621 Type 2 diabetes mellitus with foot ulcer; R74.01 Elevation of levels of liver transaminase levels; M10.9 Gout, unspecified; E66.01 Morbid (severe) obesity due to excess calories; I27.20 Pulmonary hypertension, unspecified; R79.1 Abnormal coagulation profile; K21.9 Gastro-esophageal reflux disease without esophagitis; I12.9 Hypertensive chronic kidney disease with stage 1 through stage 4 chronic kidney disease, or unspecified chronic kidney disease; R33.9 Retention of urine, unspecified; E11.65 Type 2 diabetes mellitus with hyperglycemia; L97.529 Non-pressure chronic ulcer of other part of left foot with unspecified severity; E11.22 Type 2 diabetes mellitus with diabetic chronic kidney disease; N18.32 Chronic kidney disease, stage 3b; J44.9 Chronic obstructive pulmonary disease, unspecified; G47.33 Obstructive sleep apnea (adult) (pediatric); Z79.01 Long term (current) use of anticoagulants; Z90.49 Acquired absence of other specified parts of digestive tract; Z90.710 Acquired absence of both cervix and uterus; Z68.34 Body mass index [BMI] 34.0-34.9, adult; Z98.890 Other specified postprocedural states; I25.2 Old myocardial infarction; Z79.02 Long term (current) use of antithrombotics/antiplatelets; Z87.891 Personal history of nicotine dependence; Z79.899 Other long term (current) drug therapy; Z79.2 Long term (current) use of antibiotics; Z95.1 Presence of aortocoronary bypass graft; Z79.4 Long term (current) use of insulin; Z79.82 Long term (current) use of aspirin; Z88.8 Allergy status to other drugs, medicaments and biological substances
CPT/HCPCS: 0241U; 36415; 36430; 36556; 51701; 51703; 71045; 74019; 74176; 80048; 80053; 80074; 80162; 80202; 81001; 82272; 82947; 83605; 83690; 83735; 84100; 84145; 84478; 85014; 85018; 85025; 85610; 86850; 86900; 86901; 86923; 87040; 87086; 87507; 93005; 93010; 93971; 96365-59; 96375-59; 97110; 97116; 97162; 97166; 97530; 97535; 99291-25; A9270; C1751; C9113; J0295; J0610; J1160; J1815; J1940; J2405; J2765; J3370; J3411; J3430; J3475; J3480; J7030; J7040; J7050; J7060; J7120; J7131; P9016